=== PATIENT | male | born 1950 | race African-American/Black ===

== ENCOUNTER 2020-05-13 23:01 | Inpatient (IN) ==
[2020-05-14 00:28] LABS: Basophils % 0.5 % (0.0-0.8); Eosinophils % 0.7 % (0.00-10.9); Hematocrit 36.4 VOL% (42.0-52.0); Hemoglobin 12.4 GM/DL (14.0-18.0); Immature Granulocytes % 0.8 %; Immature Granulocytes Absolute 0.05 #; Lymphocytes # 1.5 10*3/uL (1.4-4.0); Lymphocytes % 24.9 % (21.2-54.2); Mean Corpuscular HGB Conc 34.1 GM/DL (32-36); Mean Corpuscular Volume 94.1 FL (87-102); Mean Platelet Volume 10.6 FL (9.6-12.0); Monocytes % 15.3 % (1.7-12.7); Neutrophils % 57.8 % (38.7-73.9); Red Blood Count 3.87 MC/CUMM (3.8-5.5); Red Cell Distribution Width 14.3 % (9.3-17.3); White Blood Count 6.2 T/CUMM (4-12)
[2020-05-14 00:29] LABS: Platelet Count 113 T/CUMM (130-400)
[2020-05-14 00:30] LABS: Total Cells Counted 0
[2020-05-14 00:46] LABS: Albumin 3.2 G/DL (3.4-5.0); Bilirubin,Total 1.3 MG/DL (0.2-1.0); Calcium 8.9 MG/DL (8.5-10.1); Osmolality,Calculated 260.9 MOS/KG (273-304); Potassium 4.5 MMOL/L (3.5-5.1); Total Protein 6.5 G/DL (6.4-8.3)
[2020-05-14] MEDS ORDERED: DEXTROSE 50% 25 GM/50 ML VIAL IV PRN (02:23)
[2020-05-14] MEDS ORDERED: GLUCAGON 1 MG VIAL IM PRN (02:23)
[2020-05-14] MEDS ORDERED: MAGNESIUM SULF RIDER 4 GM in PREMIX 1 EACH IV PRN (02:23)
[2020-05-14] MEDS ORDERED: ACETAMINOPHEN 325 MG TABLET PO PRN (02:23)
[2020-05-14] MEDS ORDERED: ONDANSETRON 4 MG/2 ML VIAL IV PRN (02:23)
[2020-05-14] MEDS ORDERED: ZALEPLON 5 MG CAPSULE PO PRN (02:23)
[2020-05-14] MEDS ORDERED: MAGNESIUM SULF RIDER 2 GM in PREMIX 1 EACH IV PRN (02:23)
[2020-05-14] MEDS ORDERED: LORazepam 1 MG TABLET PO PRN (02:47)
[2020-05-14] MEDS: ENOXAPARIN 40 MG/0.4 ML SYRINGE SUBCUT SCH (03:34)
[2020-05-14 06:27] LABS: Basophils % 0.7 % (0.0-0.8); Eosinophils # 0.1 10*3/uL (0.0-0.87); Eosinophils % 0.9 % (0.00-10.9); Hematocrit 34.7 VOL% (42.0-52.0); Hemoglobin 11.9 GM/DL (14.0-18.0); Immature Granulocytes % 0.6 %; Immature Granulocytes Absolute 0.03 #; Lymphocytes # 1.7 10*3/uL (1.4-4.0); Mean Corpuscular HGB Conc 34.3 GM/DL (32-36); Mean Platelet Volume 10.6 FL (9.6-12.0); Monocytes % 13.1 % (1.7-12.7); Neutrophils % 52.7 % (38.7-73.9); Platelet Count 104 T/CUMM (130-400); Red Blood Count 3.73 MC/CUMM (3.8-5.5); Red Cell Distribution Width 14.3 % (9.3-17.3); White Blood Count 5.4 T/CUMM (4-12)
[2020-05-14 06:49] LABS: Bilirubin,Total 1.7 MG/DL (0.2-1.0); Calcium 9.1 MG/DL (8.5-10.1); Osmolality,Calculated 259.1 MOS/KG (273-304); Potassium 4.2 MMOL/L (3.5-5.1); Total Protein 6.5 G/DL (6.4-8.3)
[2020-05-14] MEDS ORDERED: NITROGLYCERIN SL 0.4 MG TABLET SL PRN (07:28)
[2020-05-14 08:30] LABS: Band Neutrophils 1 % (0-10); Eosinophils 1 % (0-10); Lymphocytes 34 % (20-55); Segmented Neutrophils 55 % (50-85); Total Cells Counted 100
[2020-05-14 08:31] LABS: Anisocytosis 1+; Macrocytosis 1+; Platelet Estimate Normal
[2020-05-14] MEDS: MAGNESIUM OXIDE 400 MG TABLET PO SCH (09:38)
[2020-05-14] MEDS: CHOLECALCIFEROL 1,000 UNIT TABLET PO SCH (09:38)
[2020-05-14] MEDS: FUROSEMIDE 40 MG/4 ML VIAL IV SCH ×2 (09:38→16:32)
[2020-05-14] MEDS: CLOPIDOGREL 75 MG TABLET PO SCH (09:39)
[2020-05-14] MEDS: PANTOPRAZOLE 40 MG TABLET PO SCH (09:39)
[2020-05-14] MEDS: NICOTINE 21 MG/24 HR PATCH TRANSDERM SCH (09:39)
[2020-05-14] MEDS: POTASSIUM CHLORIDE 20 MEQ TABLET PO SCH ×2 (09:39→21:49)
[2020-05-14] MEDS: ASPIRIN EC 81 MG TABLET PO SCH (09:39)
[2020-05-14] MEDS: THIAMINE 100 MG TABLET PO SCH (09:39)
[2020-05-14] MEDS: FOLIC ACID 1 MG TABLET PO SCH (09:39)
[2020-05-14] MEDS: MULTIVITAMIN (CENTRUM) TABLET PO SCH (09:39)
[2020-05-14] MEDS: SIMVASTATIN 40 MG TABLET PO SCH (21:49)
[2020-05-15 03:15] LABS: Basophils % 0.8 % (0.0-0.8); Eosinophils % 0.8 % (0.00-10.9); Hematocrit 34.1 VOL% (42.0-52.0); Hemoglobin 11.4 GM/DL (14.0-18.0); Immature Granulocytes % 0.4 %; Immature Granulocytes Absolute 0.02 #; Lymphocytes # 1.4 10*3/uL (1.4-4.0); Lymphocytes % 28.6 % (21.2-54.2); Mean Corpuscular HGB Conc 33.4 GM/DL (32-36); Mean Corpuscular Volume 96.1 FL (87-102); Mean Platelet Volume 10.7 FL (9.6-12.0); Monocytes % 13.7 % (1.7-12.7); Neutrophils % 55.7 % (38.7-73.9); Platelet Count 110 T/CUMM (130-400); Red Blood Count 3.55 MC/CUMM (3.8-5.5); Red Cell Distribution Width 14.4 % (9.3-17.3); White Blood Count 4.8 T/CUMM (4-12)
[2020-05-15 03:45] LABS: Albumin 2.9 G/DL (3.4-5.0); Bilirubin,Total 1.3 MG/DL (0.2-1.0); Calcium 8.8 MG/DL (8.5-10.1); Osmolality,Calculated 260.1 MOS/KG (273-304); Potassium 3.8 MMOL/L (3.5-5.1); Total Protein 6.3 G/DL (6.4-8.3)
[2020-05-15 04:18] LABS: Hypochromasia 2+
[2020-05-15 04:19] LABS: Macrocytosis 1+; Platelet Estimate Decreased
[2020-05-15] MEDS: ENOXAPARIN 40 MG/0.4 ML SYRINGE SUBCUT SCH (04:32)
[2020-05-15] MEDS: PANTOPRAZOLE 40 MG TABLET PO SCH (09:37)
[2020-05-15] MEDS: CLOPIDOGREL 75 MG TABLET PO SCH (09:37)
[2020-05-15] MEDS: MULTIVITAMIN (CENTRUM) TABLET PO SCH (09:37)
[2020-05-15] MEDS: MAGNESIUM OXIDE 400 MG TABLET PO SCH (09:37)
[2020-05-15] MEDS: POTASSIUM CHLORIDE 20 MEQ TABLET PO SCH ×2 (09:37→21:24)
[2020-05-15] MEDS: THIAMINE 100 MG TABLET PO SCH (09:38)
[2020-05-15] MEDS: CHOLECALCIFEROL 1,000 UNIT TABLET PO SCH (09:38)
[2020-05-15] MEDS: FUROSEMIDE 40 MG/4 ML VIAL IV SCH ×2 (09:38→16:04)
[2020-05-15] MEDS: NICOTINE 21 MG/24 HR PATCH TRANSDERM SCH (09:38)
[2020-05-15] MEDS: FOLIC ACID 1 MG TABLET PO SCH (09:38)
[2020-05-15] MEDS: ASPIRIN EC 81 MG TABLET PO SCH (09:38)
[2020-05-15 14:50] LABS: Potassium 4.3 MMOL/L (3.5-5.1)
[2020-05-15] MEDS: SIMVASTATIN 40 MG TABLET PO SCH (21:24)
[2020-05-16] MEDS: ENOXAPARIN 40 MG/0.4 ML SYRINGE SUBCUT SCH (02:57)
[2020-05-16 06:59] LABS: Basophils % 0.4 % (0.0-0.8); Eosinophils % 0.8 % (0.00-10.9); Hematocrit 35.4 VOL% (42.0-52.0); Hemoglobin 12.1 GM/DL (14.0-18.0); Immature Granulocytes % 0.6 %; Immature Granulocytes Absolute 0.03 #; Lymphocytes # 1.7 10*3/uL (1.4-4.0); Lymphocytes % 31.5 % (21.2-54.2); Mean Corpuscular HGB Conc 34.2 GM/DL (32-36); Mean Corpuscular Volume 91.9 FL (87-102); Mean Platelet Volume 10.9 FL (9.6-12.0); Monocytes % 14.3 % (1.7-12.7); Neutrophils % 52.4 % (38.7-73.9); Platelet Count 96 T/CUMM (130-400); Red Blood Count 3.85 MC/CUMM (3.8-5.5); Red Cell Distribution Width 14.1 % (9.3-17.3); White Blood Count 5.2 T/CUMM (4-12)
[2020-05-16 07:21] LABS: Albumin 3.2 G/DL (3.4-5.0); Bilirubin,Total 1.7 MG/DL (0.2-1.0); Calcium 9.3 MG/DL (8.5-10.1); Osmolality,Calculated 256.4 MOS/KG (273-304); Potassium 4.1 MMOL/L (3.5-5.1); Total Protein 6.8 G/DL (6.4-8.3)
[2020-05-16 07:25] LABS: Hypochromasia 1+; Microcytosis 1+; Platelet Estimate Decreased
[2020-05-16] MEDS: FOLIC ACID 1 MG TABLET PO SCH (09:17)
[2020-05-16] MEDS: POTASSIUM CHLORIDE 20 MEQ TABLET PO SCH ×2 (09:17→20:51)
[2020-05-16] MEDS: CHOLECALCIFEROL 1,000 UNIT TABLET PO SCH (09:17)
[2020-05-16] MEDS: PANTOPRAZOLE 40 MG TABLET PO SCH (09:18)
[2020-05-16] MEDS: MAGNESIUM OXIDE 400 MG TABLET PO SCH (09:18)
[2020-05-16] MEDS: MULTIVITAMIN (CENTRUM) TABLET PO SCH (09:18)
[2020-05-16] MEDS: THIAMINE 100 MG TABLET PO SCH (09:18)
[2020-05-16] MEDS: NICOTINE 21 MG/24 HR PATCH TRANSDERM SCH (09:18)
[2020-05-16] MEDS: ASPIRIN EC 81 MG TABLET PO SCH (09:18)
[2020-05-16] MEDS: CLOPIDOGREL 75 MG TABLET PO SCH (09:18)
[2020-05-16] MEDS: FUROSEMIDE 40 MG/4 ML VIAL IV SCH ×2 (09:19→15:07)
[2020-05-16] MEDS: SIMVASTATIN 40 MG TABLET PO SCH (20:51)
[2020-05-17] MEDS: ENOXAPARIN 40 MG/0.4 ML SYRINGE SUBCUT SCH (03:13)
[2020-05-17 05:53] LABS: Basophils % 0.7 % (0.0-0.8); Eosinophils # 0.1 10*3/uL (0.0-0.87); Eosinophils % 0.9 % (0.00-10.9); Hemoglobin 12.2 GM/DL (14.0-18.0); Immature Granulocytes % 0.7 %; Immature Granulocytes Absolute 0.04 #; Lymphocytes # 1.6 10*3/uL (1.4-4.0); Lymphocytes % 30.4 % (21.2-54.2); Mean Corpuscular HGB Conc 33.9 GM/DL (32-36); Mean Corpuscular Volume 94.5 FL (87-102); Mean Platelet Volume 11.2 FL (9.6-12.0); Monocytes % 17.3 % (1.7-12.7); Platelet Count 122 T/CUMM (130-400); Red Blood Count 3.81 MC/CUMM (3.8-5.5); Red Cell Distribution Width 14.2 % (9.3-17.3); White Blood Count 5.4 T/CUMM (4-12)
[2020-05-17 06:24] LABS: Hypochromasia 1+; Lymphocytes 35 % (20-55); Microcytosis 1+; Segmented Neutrophils 56 % (50-85); Total Cells Counted 100
[2020-05-17 06:25] LABS: Platelet Estimate Adequate; Target Cells Slight
[2020-05-17 06:32] LABS: Calcium 9.4 MG/DL (8.5-10.1); Osmolality,Calculated 263.7 MOS/KG (273-304)
[2020-05-17] MEDS: FUROSEMIDE 40 MG/4 ML VIAL IV SCH ×2 (09:32→16:12)
[2020-05-17] MEDS ORDERED: DIAZEPAM 5 MG TABLET PO ONE (12:01)
[2020-05-17] MEDS ORDERED: diphenhydrAMINE CAP 50 MG CAPSULE PO ONE (12:01)
[2020-05-17] MEDS ORDERED: HEPARIN/NACL 0.9% 2 UNITS/ML 1,000 ML IV ONE (13:32)
[2020-05-17] MEDS ORDERED: LIDOCAINE 1%/EPI INJ 20 ML VIAL ONE (14:03)
[2020-05-17] MEDS ORDERED: MIDAZOLAM 2 MG/2 ML VIAL ONE (14:10)
[2020-05-17] MEDS ORDERED: fentaNYL 100 MCG/2 ML VIAL ONE (14:10)
[2020-05-17] MEDS: MAGNESIUM OXIDE 400 MG TABLET PO SCH (15:54)
[2020-05-17] MEDS: POTASSIUM CHLORIDE 20 MEQ TABLET PO SCH ×2 (15:54→22:41)
[2020-05-17] MEDS: FOLIC ACID 1 MG TABLET PO SCH (15:55)
[2020-05-17] MEDS: CHOLECALCIFEROL 1,000 UNIT TABLET PO SCH (15:55)
[2020-05-17] MEDS: MULTIVITAMIN (CENTRUM) TABLET PO SCH (15:55)
[2020-05-17] MEDS: PANTOPRAZOLE 40 MG TABLET PO SCH (15:55)
[2020-05-17] MEDS: THIAMINE 100 MG TABLET PO SCH (15:55)
[2020-05-17] MEDS: ASPIRIN EC 81 MG TABLET PO SCH (15:55)
[2020-05-17] MEDS: CLOPIDOGREL 75 MG TABLET PO SCH (15:55)
[2020-05-17] MEDS: NICOTINE 21 MG/24 HR PATCH TRANSDERM SCH (16:12)
[2020-05-17] MEDS: SIMVASTATIN 40 MG TABLET PO SCH (22:41)
[2020-05-18] MEDS ORDERED: SODIUM CHLORIDE 0.9% 500 ML IV ONE ×2 (01:25→08:22)
[2020-05-18 01:52] LABS: Basophils # 0.1 10*3/uL (0.0-0.2); Eosinophils # 0.1 10*3/uL (0.0-0.87); Hemoglobin 11.8 GM/DL (14.0-18.0); Immature Granulocytes % 0.6 %; Immature Granulocytes Absolute 0.03 #; Lymphocytes # 1.6 10*3/uL (1.4-4.0); Lymphocytes % 30.8 % (21.2-54.2); Mean Corpuscular HGB Conc 33.7 GM/DL (32-36); Mean Corpuscular Volume 94.3 FL (87-102); Mean Platelet Volume 10.3 FL (9.6-12.0); Neutrophils % 50.6 % (38.7-73.9); Platelet Count 123 T/CUMM (130-400); Red Blood Count 3.71 MC/CUMM (3.8-5.5); Red Cell Distribution Width 14.3 % (9.3-17.3); White Blood Count 5.1 T/CUMM (4-12)
[2020-05-18 02:18] LABS: Calcium 9.2 MG/DL (8.5-10.1); Osmolality,Calculated 259.9 MOS/KG (273-304); Potassium 3.9 MMOL/L (3.5-5.1)
[2020-05-18 03:02] LABS: Anisocytosis 1+; Band Neutrophils 3 % (0-10); Eosinophils 1 % (0-10); Lymphocytes 25 % (20-55); Macrocytosis 1+; Platelet Estimate Decreased; Segmented Neutrophils 51 % (50-85); Total Cells Counted 100
[2020-05-18 06:48] LABS: Basophils % 0.4 % (0.0-0.8); Eosinophils % 0.7 % (0.00-10.9); Hematocrit 34.8 VOL% (42.0-52.0); Hemoglobin 11.9 GM/DL (14.0-18.0); Immature Granulocytes % 0.4 %; Immature Granulocytes Absolute 0.02 #; Lymphocytes # 1.3 10*3/uL (1.4-4.0); Lymphocytes % 29.3 % (21.2-54.2); Mean Corpuscular HGB Conc 34.2 GM/DL (32-36); Mean Corpuscular Volume 94.8 FL (87-102); Mean Platelet Volume 10.9 FL (9.6-12.0); Monocytes % 14.9 % (1.7-12.7); Neutrophils % 54.3 % (38.7-73.9); Platelet Count 105 T/CUMM (130-400); Red Blood Count 3.67 MC/CUMM (3.8-5.5); Red Cell Distribution Width 14.2 % (9.3-17.3); White Blood Count 4.5 T/CUMM (4-12)
[2020-05-18 07:28] LABS: Platelet Estimate Adequate
[2020-05-18 07:29] LABS: Anisocytosis 1+; Macrocytosis 1+
[2020-05-18] MEDS: FOLIC ACID 1 MG TABLET PO SCH (08:49)
[2020-05-18] MEDS: MAGNESIUM OXIDE 400 MG TABLET PO SCH (08:49)
[2020-05-18] MEDS: CHOLECALCIFEROL 1,000 UNIT TABLET PO SCH (08:49)
[2020-05-18] MEDS: ENOXAPARIN 40 MG/0.4 ML SYRINGE SUBCUT SCH (08:49)
[2020-05-18] MEDS: POTASSIUM CHLORIDE 20 MEQ TABLET PO SCH (08:49)
[2020-05-18] MEDS: CLOPIDOGREL 75 MG TABLET PO SCH (08:49)
[2020-05-18] MEDS: THIAMINE 100 MG TABLET PO SCH (08:49)
[2020-05-18] MEDS: ASPIRIN EC 81 MG TABLET PO SCH (08:49)
[2020-05-18] MEDS: PANTOPRAZOLE 40 MG TABLET PO SCH (08:49)
[2020-05-18] MEDS: MULTIVITAMIN (CENTRUM) TABLET PO SCH (08:49)
[2020-05-18] MEDS ORDERED: FUROSEMIDE 80 MG TABLET PO SCH (09:00)
[2020-05-18] MEDS: NICOTINE 21 MG/24 HR PATCH TRANSDERM SCH (09:09)
[2020-05-18 12:33] VITALS: BP 106/67
== END 2020-05-18 12:28 | disposition home or self-care (01) | DRG 287 ==
LOC: N.ED 23:01 → N.EDINP 05-14 02:23 → SUATTDRO 05-14 02:23 → N.EDINP 05-14 04:12 → N.TELEN 05-14 05:03
PROVIDERS: ADMIT Internal Medicine; ATTEND Emergency Medicine
PROC: CLCCHCL (ICD-10-PCS; 2020-05-17 12:45)

== ENCOUNTER 2020-06-12 20:05 | Inpatient (IN) ==
[2020-06-12 23:36] LABS: Basophils % 0.3 % (0.0-0.8); Eosinophils % 0.5 % (0.00-10.9); Hematocrit 40.8 VOL% (42.0-52.0); Hemoglobin 13.7 GM/DL (14.0-18.0); Immature Granulocytes % 0.8 %; Immature Granulocytes Absolute 0.05 #; Lymphocytes # 1.1 10*3/uL (1.4-4.0); Lymphocytes % 17.6 % (21.2-54.2); Mean Corpuscular HGB Conc 33.6 GM/DL (32-36); Mean Corpuscular Volume 94.2 FL (87-102); Mean Platelet Volume 10.5 FL (9.6-12.0); Monocytes % 16.5 % (1.7-12.7); Neutrophils % 64.3 % (38.7-73.9); Platelet Count 116 T/CUMM (130-400); Red Blood Count 4.33 MC/CUMM (3.8-5.5); Red Cell Distribution Width 15.4 % (9.3-17.3); White Blood Count 6.4 T/CUMM (4-12)
[2020-06-12] MEDS ORDERED: FUROSEMIDE 40 MG/4 ML VIAL IV STA (23:47)
[2020-06-12] MEDS ORDERED: PANTOPRAZOLE 40 MG VIAL IV STA (23:47)
[2020-06-12] MEDS ORDERED: ONDANSETRON 4 MG/2 ML VIAL IV STA (23:47)
[2020-06-12 23:58] LABS: Albumin 3.7 G/DL (3.4-5.0); Bilirubin,Total 2.9 MG/DL (0.2-1.0); Calcium 9.5 MG/DL (8.5-10.1); Osmolality,Calculated 262.8 MOS/KG (273-304); Potassium 4.5 MMOL/L (3.5-5.1); Total Protein 6.9 G/DL (6.4-8.2)
[2020-06-13 00:03] LABS: Troponin I 0.073 NG/ML (0.00-0.045)
[2020-06-13 00:19] LABS: INR 1.4; PT Patient Result 14.7 SECS (9.8-11.9)
[2020-06-13] MEDS ORDERED: FUROSEMIDE 20 MG/2 ML VIAL IV STA (01:05)
[2020-06-13] MEDS ORDERED: NICOTINE 21 MG/24 HR PATCH TRANSDERM PRN (04:02)
[2020-06-13] MEDS ORDERED: GLUCAGON 1 MG VIAL IM PRN (04:02)
[2020-06-13] MEDS ORDERED: ONDANSETRON 4 MG/2 ML VIAL IV PRN (04:02)
[2020-06-13] MEDS ORDERED: ACETAMINOPHEN 325 MG TABLET PO PRN (04:02)
[2020-06-13] MEDS ORDERED: DEXTROSE 50% 25 GM/50 ML VIAL IV PRN (04:02)
[2020-06-13] MEDS ORDERED: LORazepam 1 MG TABLET PO PRN (04:56)
[2020-06-13 07:00] LABS: Bilirubin,Urine Negative (Negative); Blood, Urine Negative (Negative); Glucose,Urine (UA) Negative (Negative); Hyaline Casts,Urine 23 /LPF (0-3); Ketones,Urine Negative (Negative); Mucus,Urine Occasional /LPF (Occasional); Nitrite,Urine Negative (Negative); Protein,Urine Negative; RBC,Urine 1 /HPF (0-4); Squamous Epithelial Cell,Urine Occasional /HPF (0-10); Urine Appearance CLEAR (Clear); Urine Color Yellow (Yellow); Urine Specific Gravity 1.006 (1.001-1.035); Urine Urobilinogen < 2.0 EU/DL (0.2-1.0)
[2020-06-13] MEDS: POTASSIUM CHLORIDE 20 MEQ TABLET PO SCH ×2 (08:48→20:54)
[2020-06-13] MEDS: ASPIRIN EC 81 MG TABLET PO SCH (08:48)
[2020-06-13] MEDS: MAGNESIUM OXIDE 400 MG TABLET PO SCH (08:48)
[2020-06-13] MEDS: FOLIC ACID 1 MG TABLET PO SCH (08:48)
[2020-06-13] MEDS: PANTOPRAZOLE 40 MG TABLET PO SCH (08:48)
[2020-06-13] MEDS: CHOLECALCIFEROL 1,000 UNIT TABLET PO SCH ×2 (08:48→20:54)
[2020-06-13] MEDS: FUROSEMIDE 40 MG/4 ML VIAL IV SCH ×2 (08:49→15:45)
[2020-06-13] MEDS: ENOXAPARIN 40 MG/0.4 ML SYRINGE SUBCUT SCH (08:50)
[2020-06-13] MEDS: THIAMINE 100 MG TABLET PO SCH (08:57)
[2020-06-13] MEDS ORDERED: NITROGLYCERIN SL 0.4 MG TABLET SL PRN (11:11)
[2020-06-13] MEDS: CLOPIDOGREL 75 MG TABLET PO SCH (12:02)
[2020-06-13 13:07] LABS: Calcium 9.3 MG/DL (8.5-10.1); Osmolality,Calculated 256.4 MOS/KG (273-304); Potassium 4.1 MMOL/L (3.5-5.1)
[2020-06-13] MEDS ORDERED: INFLUENZA VIRUS VACCINE 0.5 ML SYRINGE IM ONE (17:27)
[2020-06-13] MEDS: traZODone 50 MG TABLET PO SCH (20:54)
[2020-06-13] MEDS: SIMVASTATIN 40 MG TABLET PO SCH (20:55)
[2020-06-14 04:22] LABS: Basophils % 0.6 % (0.0-0.8); Eosinophils # 0.1 10*3/uL (0.0-0.87); Eosinophils % 1.1 % (0.00-10.9); Hematocrit 35.8 VOL% (42.0-52.0); Hemoglobin 12.3 GM/DL (14.0-18.0); Immature Granulocytes % 0.6 %; Immature Granulocytes Absolute 0.03 #; Lymphocytes % 21.5 % (21.2-54.2); Mean Corpuscular HGB Conc 34.4 GM/DL (32-36); Mean Corpuscular Volume 92.3 FL (87-102); Monocytes % 13.4 % (1.7-12.7); Neutrophils % 62.8 % (38.7-73.9); Platelet Count 94 T/CUMM (130-400); Red Blood Count 3.88 MC/CUMM (3.8-5.5); Red Cell Distribution Width 15.9 % (9.3-17.3); White Blood Count 4.7 T/CUMM (4-12)
[2020-06-14 04:41] LABS: Albumin 3.1 G/DL (3.4-5.0); Bilirubin,Total 3.7 MG/DL (0.2-1.0); Calcium 8.9 MG/DL (8.5-10.1); Osmolality,Calculated 263.8 MOS/KG (273-304); Potassium 4.3 MMOL/L (3.5-5.1); Total Protein 6.2 G/DL (6.4-8.2)
[2020-06-14 04:42] LABS: Hypochromasia 1+
[2020-06-14 04:43] LABS: Microcytosis 1+; Ovalocytes Slight
[2020-06-14 04:44] LABS: Platelet Estimate Decreased
[2020-06-14] MEDS: FOLIC ACID 1 MG TABLET PO SCH (09:04)
[2020-06-14] MEDS: ASPIRIN EC 81 MG TABLET PO SCH (09:04)
[2020-06-14] MEDS: MULTIVITAMIN (BEROCCA) TABLET PO SCH (09:04)
[2020-06-14] MEDS: PANTOPRAZOLE 40 MG TABLET PO SCH (09:04)
[2020-06-14] MEDS: CLOPIDOGREL 75 MG TABLET PO SCH (09:04)
[2020-06-14] MEDS: CHOLECALCIFEROL 1,000 UNIT TABLET PO SCH ×2 (09:04→20:51)
[2020-06-14] MEDS: POTASSIUM CHLORIDE 20 MEQ TABLET PO SCH ×2 (09:04→20:51)
[2020-06-14] MEDS: MAGNESIUM OXIDE 400 MG TABLET PO SCH (09:04)
[2020-06-14] MEDS: THIAMINE 100 MG TABLET PO SCH (09:04)
[2020-06-14] MEDS: FUROSEMIDE 40 MG/4 ML VIAL IV SCH ×2 (09:05→15:27)
[2020-06-14] MEDS: ENOXAPARIN 40 MG/0.4 ML SYRINGE SUBCUT SCH (09:05)
[2020-06-14] MEDS: SIMVASTATIN 40 MG TABLET PO SCH (20:52)
[2020-06-14] MEDS: traZODone 50 MG TABLET PO SCH (20:52)
[2020-06-15 06:36] LABS: Calcium 9.4 MG/DL (8.5-10.1); Osmolality,Calculated 259.2 MOS/KG (273-304)
[2020-06-15 06:38] LABS: Albumin 3.2 G/DL (3.4-5.0); Bilirubin,Direct 1.41 MG/DL (0.0-0.20); Bilirubin,Indirect 1.5 MG/DL (0.0-1.0); Bilirubin,Total 2.9 MG/DL (0.2-1.0); Total Protein 6.6 G/DL (6.4-8.2)
[2020-06-15] MEDS: FUROSEMIDE 40 MG/4 ML VIAL IV SCH (09:31)
[2020-06-15] MEDS: FOLIC ACID 1 MG TABLET PO SCH (09:31)
[2020-06-15] MEDS: THIAMINE 100 MG TABLET PO SCH (09:31)
[2020-06-15] MEDS: MULTIVITAMIN (BEROCCA) TABLET PO SCH (09:31)
[2020-06-15] MEDS: POTASSIUM CHLORIDE 20 MEQ TABLET PO SCH (09:31)
[2020-06-15] MEDS: CHOLECALCIFEROL 1,000 UNIT TABLET PO SCH (09:31)
[2020-06-15] MEDS: ENOXAPARIN 40 MG/0.4 ML SYRINGE SUBCUT SCH (09:31)
[2020-06-15] MEDS: ASPIRIN EC 81 MG TABLET PO SCH (09:31)
[2020-06-15] MEDS: CLOPIDOGREL 75 MG TABLET PO SCH (09:31)
[2020-06-15] MEDS: MAGNESIUM OXIDE 400 MG TABLET PO SCH (09:31)
[2020-06-15] MEDS: PANTOPRAZOLE 40 MG TABLET PO SCH (09:31)
[2020-06-15 11:36] VITALS: BP 99/64
== END 2020-06-15 15:04 | disposition home or self-care (01) | DRG 292 ==
LOC: N.EDINP 20:05 → N.ED 20:05 → N.2E 06-13 16:48
PROVIDERS: ADMIT Internal Medicine; ATTEND Internal Medicine

== ENCOUNTER 2020-06-21 11:06 | Inpatient (IN) ==
[2020-06-21] MEDS ORDERED: FUROSEMIDE 100 MG/10 ML VIAL IV STA (11:35)
[2020-06-21 12:15] LABS: Basophils % 0.4 % (0.0-0.8); Eosinophils % 0.4 % (0.00-10.9); Hematocrit 37.6 VOL% (42.0-52.0); Hemoglobin 12.9 GM/DL (14.0-18.0); Immature Granulocytes % 0.6 %; Immature Granulocytes Absolute 0.03 #; Lymphocytes # 0.7 10*3/uL (1.4-4.0); Lymphocytes % 14.4 % (21.2-54.2); Mean Corpuscular HGB Conc 34.3 GM/DL (32-36); Mean Corpuscular Volume 92.2 FL (87-102); Monocytes % 15.2 % (1.7-12.7); Platelet Count 137 T/CUMM (130-400); Red Blood Count 4.08 MC/CUMM (3.8-5.5); Red Cell Distribution Width 15.8 % (9.3-17.3)
[2020-06-21 12:33] LABS: Albumin 3.3 G/DL (3.4-5.0); Calcium 9.3 MG/DL (8.5-10.1); Osmolality,Calculated 255.2 MOS/KG (273-304); Potassium 4.4 MMOL/L (3.5-5.1); Total Protein 6.6 G/DL (6.4-8.2)
[2020-06-21 12:37] LABS: Anisocytosis 1+; Platelet Estimate Adequate
[2020-06-21 12:38] LABS: Macrocytosis 1+; Poikilocytosis Slight
[2020-06-21] MEDS ORDERED: ZALEPLON 5 MG CAPSULE PO PRN (13:24)
[2020-06-21] MEDS ORDERED: guaiFENesin/DM ER 600-30 MG TABLET PO PRN (13:24)
[2020-06-21] MEDS ORDERED: ONDANSETRON 4 MG/2 ML VIAL IV PRN (13:24)
[2020-06-21] MEDS ORDERED: POTASSIUM CHLORIDE 20 MEQ TABLET PO PRN (13:24)
[2020-06-21] MEDS ORDERED: diphenhydrAMINE CAP 25 MG CAPSULE PO PRN (13:24)
[2020-06-21] MEDS ORDERED: MAGNESIUM SULF RIDER 2 GM in PREMIX 1 EACH IV PRN (13:24)
[2020-06-21] MEDS ORDERED: MAGNESIUM SULF RIDER 4 GM in PREMIX 1 EACH IV PRN (13:24)
[2020-06-21] MEDS ORDERED: ACETAMINOPHEN 325 MG TABLET PO PRN (13:24)
[2020-06-21] MEDS ORDERED: hydrALAZINE 20 MG/1 ML VIAL IV PRN (13:24)
[2020-06-21 13:47] LABS: Troponin I 0.087 NG/ML (0.00-0.045)
[2020-06-21] MEDS ORDERED: NITROGLYCERIN SL 0.4 MG TABLET SL PRN (14:19)
[2020-06-21] MEDS: ENOXAPARIN 40 MG/0.4 ML SYRINGE SUBCUT SCH (15:17)
[2020-06-21] MEDS: FUROSEMIDE 40 MG/4 ML VIAL IV SCH (16:04)
[2020-06-21] MEDS: traZODone 50 MG TABLET PO SCH (20:20)
[2020-06-21] MEDS: POTASSIUM CHLORIDE 20 MEQ TABLET PO SCH (20:20)
[2020-06-21] MEDS: CHOLECALCIFEROL 1,000 UNIT TABLET PO SCH (20:20)
[2020-06-22 05:20] LABS: Basophils % 0.9 % (0.0-0.8); Eosinophils # 0.1 10*3/uL (0.0-0.87); Eosinophils % 1.1 % (0.00-10.9); Hematocrit 36.6 VOL% (42.0-52.0); Hemoglobin 12.3 GM/DL (14.0-18.0); Immature Granulocytes % 0.9 %; Immature Granulocytes Absolute 0.04 #; Lymphocytes # 1.1 10*3/uL (1.4-4.0); Lymphocytes % 24.4 % (21.2-54.2); Mean Corpuscular HGB Conc 33.6 GM/DL (32-36); Mean Corpuscular Volume 94.3 FL (87-102); Mean Platelet Volume 10.2 FL (9.6-12.0); Monocytes % 14.9 % (1.7-12.7); Neutrophils % 57.8 % (38.7-73.9); Platelet Count 134 T/CUMM (130-400); Red Blood Count 3.88 MC/CUMM (3.8-5.5); Red Cell Distribution Width 16.1 % (9.3-17.3); White Blood Count 4.4 T/CUMM (4-12)
[2020-06-22 05:35] LABS: Calcium 9.3 MG/DL (8.5-10.1); Osmolality,Calculated 260.1 MOS/KG (273-304); Potassium 4.3 MMOL/L (3.5-5.1)
[2020-06-22 05:49] LABS: Eosinophils 1 % (0-10); Lymphocytes 29 % (20-55); Platelet Estimate Normal; Polychromasia Slight; Segmented Neutrophils 61 % (50-85); Total Cells Counted 100
[2020-06-22] MEDS: FUROSEMIDE 40 MG/4 ML VIAL IV SCH ×2 (08:45→16:41)
[2020-06-22] MEDS: POTASSIUM CHLORIDE 20 MEQ TABLET PO SCH ×2 (08:46→20:31)
[2020-06-22] MEDS: CLOPIDOGREL 75 MG TABLET PO SCH (08:46)
[2020-06-22] MEDS: ASPIRIN EC 81 MG TABLET PO SCH (08:46)
[2020-06-22] MEDS: MAGNESIUM OXIDE 400 MG TABLET PO SCH (08:46)
[2020-06-22] MEDS: MULTIVITAMIN (BEROCCA) TABLET PO SCH (08:47)
[2020-06-22] MEDS: PANTOPRAZOLE 40 MG TABLET PO SCH (08:47)
[2020-06-22] MEDS: SPIRONOLACTONE 25 MG TABLET PO SCH (08:47)
[2020-06-22] MEDS: CHOLECALCIFEROL 1,000 UNIT TABLET PO SCH ×2 (08:47→20:31)
[2020-06-22] MEDS: SIMVASTATIN 40 MG TABLET PO SCH (08:48)
[2020-06-22] MEDS: FOLIC ACID 1 MG TABLET PO SCH (08:48)
[2020-06-22] MEDS: ENOXAPARIN 40 MG/0.4 ML SYRINGE SUBCUT SCH (13:23)
[2020-06-22] MEDS ORDERED: diphenhydrAMINE CAP 25 MG CAPSULE PO ONE (13:26)
[2020-06-22] MEDS ORDERED: DIAZEPAM 5 MG TABLET PO ONE (13:26)
[2020-06-22] MEDS: traZODone 50 MG TABLET PO SCH (20:31)
[2020-06-23 04:45] LABS: Basophils % 0.7 % (0.0-0.8); Eosinophils # 0.1 10*3/uL (0.0-0.87); Eosinophils % 1.8 % (0.00-10.9); Hematocrit 38.1 VOL% (42.0-52.0); Hemoglobin 12.6 GM/DL (14.0-18.0); Immature Granulocytes % 0.8 %; Immature Granulocytes Absolute 0.05 #; Lymphocytes # 1.3 10*3/uL (1.4-4.0); Lymphocytes % 21.7 % (21.2-54.2); Mean Corpuscular HGB Conc 33.1 GM/DL (32-36); Mean Corpuscular Volume 94.8 FL (87-102); Mean Platelet Volume 10.4 FL (9.6-12.0); Platelet Count 134 T/CUMM (130-400); Red Blood Count 4.02 MC/CUMM (3.8-5.5); Red Cell Distribution Width 16.2 % (9.3-17.3); White Blood Count 6.1 T/CUMM (4-12)
[2020-06-23 05:11] LABS: Calcium 9.5 MG/DL (8.5-10.1); Osmolality,Calculated 259.4 MOS/KG (273-304); Potassium 4.8 MMOL/L (3.5-5.1)
[2020-06-23 05:23] LABS: Eosinophils 3 % (0-10); Lymphocytes 23 % (20-55); Segmented Neutrophils 65 % (50-85); Total Cells Counted 100
[2020-06-23 05:24] LABS: Hypochromasia 1+; Microcytosis 1+; Ovalocytes Slight
[2020-06-23] MEDS: FUROSEMIDE 40 MG/4 ML VIAL IV SCH (09:05)
[2020-06-23] MEDS: MAGNESIUM OXIDE 400 MG TABLET PO SCH (09:31)
[2020-06-23] MEDS: SIMVASTATIN 40 MG TABLET PO SCH (09:31)
[2020-06-23] MEDS: CLOPIDOGREL 75 MG TABLET PO SCH (09:31)
[2020-06-23] MEDS: ASPIRIN EC 81 MG TABLET PO SCH (09:31)
[2020-06-23] MEDS: POTASSIUM CHLORIDE 20 MEQ TABLET PO SCH ×2 (09:32→20:51)
[2020-06-23] MEDS: MULTIVITAMIN (BEROCCA) TABLET PO SCH (09:32)
[2020-06-23] MEDS: PANTOPRAZOLE 40 MG TABLET PO SCH (09:32)
[2020-06-23] MEDS: SPIRONOLACTONE 25 MG TABLET PO SCH (09:32)
[2020-06-23] MEDS: FOLIC ACID 1 MG TABLET PO SCH (09:33)
[2020-06-23] MEDS: CHOLECALCIFEROL 1,000 UNIT TABLET PO SCH ×2 (09:33→20:51)
[2020-06-23] MEDS ORDERED: SODIUM CHLORIDE 0.9% 500 ML IV SCH ×2 (11:25→12:00)
[2020-06-23] MEDS ORDERED: HEPARIN/NACL 0.9% 2 UNITS/ML 1,000 ML IV ONE (11:29)
[2020-06-23] MEDS ORDERED: LIDOCAINE 1%/EPI INJ 20 ML VIAL ONE ×2 (11:29→12:32)
[2020-06-23] MEDS ORDERED: DIAZEPAM 5 MG TABLET ONE (11:36)
[2020-06-23] MEDS ORDERED: MIDAZOLAM 2 MG/2 ML VIAL ONE (12:32)
[2020-06-23] MEDS ORDERED: fentaNYL 100 MCG/2 ML VIAL ONE (12:32)
[2020-06-23] MEDS ORDERED: ENOXAPARIN 60 MG/0.6 ML SYRINGE ONE (12:52)
[2020-06-23] MEDS ORDERED: TIROFIBAN 5,000 MCG/100 ML PREMIX IV ONE (13:00)
[2020-06-23] MEDS ORDERED: CLOPIDOGREL 300 MG TABLET ONE (13:13)
[2020-06-23] MEDS: traZODone 50 MG TABLET PO SCH (20:51)
[2020-06-24 06:42] LABS: Basophils % 0.7 % (0.0-0.8); Eosinophils # 0.1 10*3/uL (0.0-0.87); Eosinophils % 1.4 % (0.00-10.9); Hematocrit 37.2 VOL% (42.0-52.0); Hemoglobin 12.7 GM/DL (14.0-18.0); Immature Granulocytes % 0.7 %; Immature Granulocytes Absolute 0.04 #; Lymphocytes # 1.1 10*3/uL (1.4-4.0); Lymphocytes % 19.5 % (21.2-54.2); Mean Corpuscular HGB Conc 34.1 GM/DL (32-36); Mean Corpuscular Volume 93.7 FL (87-102); Mean Platelet Volume 10.2 FL (9.6-12.0); Monocytes % 11.1 % (1.7-12.7); Neutrophils % 66.6 % (38.7-73.9); Platelet Count 135 T/CUMM (130-400); Red Blood Count 3.97 MC/CUMM (3.8-5.5); Red Cell Distribution Width 16.3 % (9.3-17.3); White Blood Count 5.8 T/CUMM (4-12)
[2020-06-24 06:55] LABS: Calcium 9.6 MG/DL (8.5-10.1); Osmolality,Calculated 260.2 MOS/KG (273-304); Potassium 5.3 MMOL/L (3.5-5.1)
[2020-06-24 08:07] LABS: Anisocytosis 1+; Macrocytosis 1+; Platelet Estimate Adequate
[2020-06-24 08:08] LABS: Poikilocytosis Slight
[2020-06-24] MEDS: SIMVASTATIN 40 MG TABLET PO SCH (09:10)
[2020-06-24] MEDS: CHOLECALCIFEROL 1,000 UNIT TABLET PO SCH (09:10)
[2020-06-24] MEDS: ASPIRIN EC 81 MG TABLET PO SCH (09:10)
[2020-06-24] MEDS: CLOPIDOGREL 75 MG TABLET PO SCH (09:10)
[2020-06-24] MEDS: MULTIVITAMIN (BEROCCA) TABLET PO SCH (09:10)
[2020-06-24] MEDS: FOLIC ACID 1 MG TABLET PO SCH (09:10)
[2020-06-24] MEDS: MAGNESIUM OXIDE 400 MG TABLET PO SCH (09:10)
[2020-06-24] MEDS: PANTOPRAZOLE 40 MG TABLET PO SCH (09:11)
[2020-06-24] MEDS ORDERED: FUROSEMIDE 80 MG TABLET PO ONE (11:00)
[2020-06-24 16:23] VITALS: BP 103/71
[2020-06-25] MEDS ORDERED: FUROSEMIDE 80 MG TABLET PO SCH (09:00)
== END 2020-06-24 16:30 | disposition home health service (06) | DRG 248 ==
LOC: N.EDINP 11:06 → N.ED 11:06 → N.TELEN 14:41
PROVIDERS: ADMIT Internal Medicine Interventional Cardiology; ATTEND Internal Medicine Interventional Cardiology

== ENCOUNTER 2020-08-02 10:41 | Inpatient (IN) ==
[2020-08-02] MEDS ORDERED: SODIUM CHLORIDE 0.9% 1,000 ML IV STA ×2 (11:06→12:47)
[2020-08-02 12:02] LABS: Albumin 3.1 G/DL (3.4-5.0); Bilirubin,Total 3.8 MG/DL (0.2-1.0); Calcium 10.1 MG/DL (8.5-10.1); Osmolality,Calculated 267.4 MOS/KG (273-304); Potassium 4.4 MMOL/L (3.5-5.1); Total Protein 6.7 G/DL (6.4-8.2)
[2020-08-02 12:20] LABS: Basophils % 0.2 % (0.0-0.8); Eosinophils # 0.1 10*3/uL (0.0-0.87); Eosinophils % 1.3 % (0.00-10.9); Hematocrit 42.5 VOL% (42.0-52.0); Hemoglobin 13.9 GM/DL (14.0-18.0); Immature Granulocytes % 0.4 %; Immature Granulocytes Absolute 0.02 #; Lymphocytes # 0.9 10*3/uL (1.4-4.0); Lymphocytes % 19.4 % (21.2-54.2); Mean Corpuscular HGB Conc 32.7 GM/DL (32-36); Mean Corpuscular Volume 96.2 FL (87-102); Mean Platelet Volume 11.2 FL (9.6-12.0); Monocytes % 12.4 % (1.7-12.7); Neutrophils % 66.3 % (38.7-73.9); Platelet Count 100 T/CUMM (130-400); Red Blood Count 4.42 MC/CUMM (3.8-5.5); Red Cell Distribution Width 19.5 % (9.3-17.3); White Blood Count 4.5 T/CUMM (4-12)
[2020-08-02 13:28] LABS: Bilirubin,Urine Negative (Negative); Blood, Urine Negative (Negative); Glucose,Urine (UA) Negative (Negative); Hyaline Casts,Urine 58 /LPF (0-3); Ketones,Urine Negative (Negative); Mucus,Urine Occasional /LPF (Occasional); Nitrite,Urine Negative (Negative); Protein,Urine Negative; RBC,Urine 2 /HPF (0-4); Squamous Epithelial Cell,Urine Occasional /HPF (0-10); Urine Appearance Slightly Hazy (Clear); Urine Color Amber (Yellow); Urine Specific Gravity 1.011 (1.001-1.035)
[2020-08-02] MEDS ORDERED: DEXTROSE 50% 25 GM/50 ML VIAL IV PRN (14:31)
[2020-08-02] MEDS ORDERED: GLUCAGON 1 MG VIAL IM PRN (14:31)
[2020-08-02] MEDS ORDERED: chlordiazePOXIDE 10 MG CAPSULE PO PRN (15:42)
[2020-08-02] MEDS ORDERED: LORazepam 2 MG/1 ML VIAL IV PRN (15:42)
[2020-08-02 16:47] LABS: Barbiturates Screen,Urine Negative (Negative); Benzodiazepines Screen,Urine Negative (Negative); Cannabinoid Screen,Urine Negative (Negative); Opiate Screen,Urine Negative (Negative); Phencyclidine Screen,Urine Negative (Negative)
[2020-08-02] MEDS ORDERED: THIAMINE INJ 100 MG, FOLIC ACID INJ 1 MG, MAGNESIUM SULF INJ 2 GM, MULTIVITAMIN INJ 10 ... IV SCH (17:00)
[2020-08-02] MEDS: ENOXAPARIN 40 MG/0.4 ML SYRINGE SUBCUT SCH (17:29)
[2020-08-02] MEDS: CHOLECALCIFEROL 1,000 UNIT TABLET PO SCH (21:27)
[2020-08-02] MEDS: traZODone 50 MG TABLET PO SCH (21:27)
[2020-08-03 05:22] LABS: Basophils % 0.4 % (0.0-0.8); Eosinophils # 0.1 10*3/uL (0.0-0.87); Eosinophils % 2.1 % (0.00-10.9); Hematocrit 42.2 VOL% (42.0-52.0); Hemoglobin 14.4 GM/DL (14.0-18.0); Immature Granulocytes % 0.4 %; Immature Granulocytes Absolute 0.02 #; Lymphocytes % 20.8 % (21.2-54.2); Mean Corpuscular HGB Conc 34.1 GM/DL (32-36); Mean Corpuscular Volume 93.6 FL (87-102); Mean Platelet Volume 11.5 FL (9.6-12.0); Monocytes % 11.8 % (1.7-12.7); Neutrophils % 64.5 % (38.7-73.9); Platelet Count 85 T/CUMM (130-400); Red Blood Count 4.51 MC/CUMM (3.8-5.5); Red Cell Distribution Width 19.4 % (9.3-17.3); White Blood Count 4.7 T/CUMM (4-12)
[2020-08-03 05:40] LABS: Bilirubin,Total 2.9 MG/DL (0.2-1.0); Calcium 9.2 MG/DL (8.5-10.1); Osmolality,Calculated 266.7 MOS/KG (273-304); Potassium 4.1 MMOL/L (3.5-5.1)
[2020-08-03 05:42] LABS: Platelet Estimate Decreased
[2020-08-03 05:46] LABS: Risk Ratio 2.85; Thyroid Stimulating Hormone 2.57 uIU/ml (0.358-3.74); VLDL CHOLESTEROL 17.4 MG/DL
[2020-08-03] MEDS ORDERED: FUROSEMIDE 40 MG/4 ML VIAL IV SCH (06:00)
[2020-08-03] MEDS ORDERED: SIMVASTATIN 40 MG TABLET PO SCH (09:00)
[2020-08-03] MEDS ORDERED: FOLIC ACID 1 MG TABLET PO SCH (09:00)
[2020-08-03] MEDS ORDERED: THIAMINE 100 MG TABLET PO SCH (09:00)
[2020-08-03] MEDS: ASPIRIN EC 81 MG TABLET PO SCH (09:25)
[2020-08-03] MEDS: CLOPIDOGREL 75 MG TABLET PO SCH (09:25)
[2020-08-03] MEDS: MAGNESIUM OXIDE 400 MG TABLET PO SCH (09:25)
[2020-08-03] MEDS: PANTOPRAZOLE 40 MG TABLET PO SCH (09:25)
[2020-08-03] MEDS: CHOLECALCIFEROL 1,000 UNIT TABLET PO SCH ×2 (09:25→21:17)
[2020-08-03] MEDS: MULTIVITAMIN (CENTRUM) TABLET PO SCH (14:40)
[2020-08-03] MEDS: FOLIC ACID 1 MG TABLET PO SCH (14:41)
[2020-08-03] MEDS: THIAMINE 100 MG TABLET PO SCH (14:41)
[2020-08-03] MEDS: ENOXAPARIN 40 MG/0.4 ML SYRINGE SUBCUT SCH (14:42)
[2020-08-03] MEDS: traZODone 50 MG TABLET PO SCH (21:17)
[2020-08-04] MEDS ORDERED: FUROSEMIDE 40 MG/4 ML VIAL IV SCH ×2 (06:00→09:00)
[2020-08-04 06:04] LABS: Basophils % 0.2 % (0.0-0.8); Eosinophils # 0.1 10*3/uL (0.0-0.87); Eosinophils % 1.4 % (0.00-10.9); Hematocrit 38.6 VOL% (42.0-52.0); Hemoglobin 13.1 GM/DL (14.0-18.0); Immature Granulocytes % 0.5 %; Immature Granulocytes Absolute 0.03 #; Lymphocytes # 0.7 10*3/uL (1.4-4.0); Lymphocytes % 10.9 % (21.2-54.2); Mean Corpuscular HGB Conc 33.9 GM/DL (32-36); Mean Corpuscular Volume 94.4 FL (87-102); Monocytes % 10.3 % (1.7-12.7); Neutrophils % 76.7 % (38.7-73.9); Platelet Count 87 T/CUMM (130-400); Red Blood Count 4.09 MC/CUMM (3.8-5.5); Red Cell Distribution Width 19.1 % (9.3-17.3); White Blood Count 6.3 T/CUMM (4-12)
[2020-08-04 06:13] LABS: Calcium 9.2 MG/DL (8.5-10.1); Osmolality,Calculated 274.1 MOS/KG (273-304); Potassium 3.8 MMOL/L (3.5-5.1)
[2020-08-04 07:24] LABS: Acanthocytes 1+; Ovalocytes Few; Platelet Estimate Adequate; Target Cells Few
[2020-08-04] MEDS: ASPIRIN EC 81 MG TABLET PO SCH (09:59)
[2020-08-04] MEDS: PANTOPRAZOLE 40 MG TABLET PO SCH (09:59)
[2020-08-04] MEDS: MAGNESIUM OXIDE 400 MG TABLET PO SCH (09:59)
[2020-08-04] MEDS: FOLIC ACID 1 MG TABLET PO SCH (09:59)
[2020-08-04] MEDS: MULTIVITAMIN (CENTRUM) TABLET PO SCH (09:59)
[2020-08-04] MEDS: CHOLECALCIFEROL 1,000 UNIT TABLET PO SCH ×2 (09:59→20:11)
[2020-08-04] MEDS: THIAMINE 100 MG TABLET PO SCH (09:59)
[2020-08-04] MEDS: CLOPIDOGREL 75 MG TABLET PO SCH (09:59)
[2020-08-04 10:21] LABS: ABG Base Excess 0.7 MMOL/L (-2.5-2.5); ABG Oxygen Saturation 91.7 % (95-100); ABG PCO2 38.9 MM HG (35-48); ABG PH 7.426 (7.35-7.45); ABG PO2 68.5 MM HG (80-95); ABG TCO2 26.2 MMOL/L (23-27)
[2020-08-04] MEDS ORDERED: POTASSIUM CHLORIDE 20 MEQ TABLET PO ONE (11:07)
[2020-08-04] MEDS: ENOXAPARIN 40 MG/0.4 ML SYRINGE SUBCUT SCH (15:44)
[2020-08-04] MEDS: FUROSEMIDE 40 MG/4 ML VIAL IV SCH (15:44)
[2020-08-04] MEDS ORDERED: SODIUM CHLORIDE 0.9% 250 ML IV ONE (16:55)
[2020-08-04] MEDS: traZODone 50 MG TABLET PO SCH (20:11)
[2020-08-05 05:49] LABS: Basophils % 0.6 % (0.0-0.8); Eosinophils # 0.1 10*3/uL (0.0-0.87); Eosinophils % 1.7 % (0.00-10.9); Hematocrit 44.1 VOL% (42.0-52.0); Hemoglobin 14.3 GM/DL (14.0-18.0); Immature Granulocytes % 0.6 %; Immature Granulocytes Absolute 0.03 #; Lymphocytes # 0.9 10*3/uL (1.4-4.0); Mean Corpuscular HGB Conc 32.4 GM/DL (32-36); Mean Corpuscular Volume 98.4 FL (87-102); Mean Platelet Volume 12.1 FL (9.6-12.0); Monocytes % 10.6 % (1.7-12.7); Neutrophils % 70.5 % (38.7-73.9); Platelet Count 72 T/CUMM (130-400); Red Blood Count 4.48 MC/CUMM (3.8-5.5); Red Cell Distribution Width 19.6 % (9.3-17.3); White Blood Count 5.4 T/CUMM (4-12)
[2020-08-05] MEDS: FUROSEMIDE 40 MG/4 ML VIAL IV SCH ×2 (09:24→17:13)
[2020-08-05] MEDS: THIAMINE 100 MG TABLET PO SCH (09:24)
[2020-08-05] MEDS: FOLIC ACID 1 MG TABLET PO SCH (09:24)
[2020-08-05] MEDS: MULTIVITAMIN (CENTRUM) TABLET PO SCH (09:24)
[2020-08-05] MEDS: CHOLECALCIFEROL 1,000 UNIT TABLET PO SCH ×2 (09:24→20:07)
[2020-08-05] MEDS: MAGNESIUM OXIDE 400 MG TABLET PO SCH (09:24)
[2020-08-05] MEDS: ASPIRIN EC 81 MG TABLET PO SCH (09:25)
[2020-08-05] MEDS: PANTOPRAZOLE 40 MG TABLET PO SCH (09:25)
[2020-08-05] MEDS: CLOPIDOGREL 75 MG TABLET PO SCH (09:25)
[2020-08-05 11:55] LABS: Calcium 9.2 MG/DL (8.5-10.1); Osmolality,Calculated 271.2 MOS/KG (273-304); Potassium 3.8 MMOL/L (3.5-5.1)
[2020-08-05] MEDS: POLYVINYL ALCOHOL 1.4% OPH SOLN 15 ML BOTTLE BOTH EYES SCH ×3 (16:29→20:07)
[2020-08-05] MEDS: ENOXAPARIN 40 MG/0.4 ML SYRINGE SUBCUT SCH (16:29)
[2020-08-05] MEDS: traZODone 50 MG TABLET PO SCH (20:07)
[2020-08-06 05:07] LABS: Basophils % 0.4 % (0.0-0.8); Eosinophils % 0.7 % (0.00-10.9); Hematocrit 39.7 VOL% (42.0-52.0); Hemoglobin 13.5 GM/DL (14.0-18.0); Immature Granulocytes % 0.4 %; Immature Granulocytes Absolute 0.02 #; Lymphocytes # 0.5 10*3/uL (1.4-4.0); Lymphocytes % 8.9 % (21.2-54.2); Mean Platelet Volume 12.1 FL (9.6-12.0); Monocytes % 10.4 % (1.7-12.7); Neutrophils % 79.2 % (38.7-73.9); Platelet Count 87 T/CUMM (130-400); Red Blood Count 4.18 MC/CUMM (3.8-5.5); Red Cell Distribution Width 18.8 % (9.3-17.3); White Blood Count 5.5 T/CUMM (4-12)
[2020-08-06 05:30] LABS: Hypochromasia 1+
[2020-08-06 05:31] LABS: Acanthocytes Few; Microcytosis 1+; Target Cells Slight
[2020-08-06 05:32] LABS: Platelet Estimate Decreased
[2020-08-06 05:52] LABS: Calcium 9.4 MG/DL (8.5-10.1); Osmolality,Calculated 267.5 MOS/KG (273-304); Potassium 3.5 MMOL/L (3.5-5.1)
[2020-08-06] MEDS: CHOLECALCIFEROL 1,000 UNIT TABLET PO SCH ×2 (09:21→20:04)
[2020-08-06] MEDS: MULTIVITAMIN (CENTRUM) TABLET PO SCH (09:21)
[2020-08-06] MEDS: MAGNESIUM OXIDE 400 MG TABLET PO SCH (09:21)
[2020-08-06] MEDS: FOLIC ACID 1 MG TABLET PO SCH (09:22)
[2020-08-06] MEDS: THIAMINE 100 MG TABLET PO SCH (09:22)
[2020-08-06] MEDS: ASPIRIN EC 81 MG TABLET PO SCH (09:22)
[2020-08-06] MEDS: PANTOPRAZOLE 40 MG TABLET PO SCH (09:22)
[2020-08-06] MEDS: CLOPIDOGREL 75 MG TABLET PO SCH (09:22)
[2020-08-06] MEDS: POLYVINYL ALCOHOL 1.4% OPH SOLN 15 ML BOTTLE BOTH EYES SCH ×3 (11:22→20:05)
[2020-08-06] MEDS: FUROSEMIDE 40 MG/4 ML VIAL IV SCH (11:23)
[2020-08-06] MEDS: ENOXAPARIN 40 MG/0.4 ML SYRINGE SUBCUT SCH (17:00)
[2020-08-06] MEDS: FUROSEMIDE 20 MG/2 ML VIAL IV SCH (17:00)
[2020-08-07 06:54] LABS: Basophils % 0.4 % (0.0-0.8); Eosinophils # 0.1 10*3/uL (0.0-0.87); Eosinophils % 1.5 % (0.00-10.9); Hemoglobin 13.2 GM/DL (14.0-18.0); Immature Granulocytes % 0.6 %; Immature Granulocytes Absolute 0.03 #; Lymphocytes # 0.8 10*3/uL (1.4-4.0); Mean Corpuscular HGB Conc 33.8 GM/DL (32-36); Mean Corpuscular Volume 93.5 FL (87-102); Mean Platelet Volume 11.8 FL (9.6-12.0); Monocytes % 10.6 % (1.7-12.7); Neutrophils % 70.9 % (38.7-73.9); Platelet Count 90 T/CUMM (130-400); Red Blood Count 4.17 MC/CUMM (3.8-5.5); Red Cell Distribution Width 18.7 % (9.3-17.3); White Blood Count 5.2 T/CUMM (4-12)
[2020-08-07 07:09] LABS: Calcium 9.2 MG/DL (8.5-10.1); Osmolality,Calculated 267.5 MOS/KG (273-304); Potassium 3.7 MMOL/L (3.5-5.1)
[2020-08-07 07:21] LABS: Eosinophils 2 % (0-10); Hypochromasia Slight; Lymphocytes 16 % (20-55); Microcytosis 1+; Ovalocytes Slight; Segmented Neutrophils 73 % (50-85); Target Cells Slight; Total Cells Counted 100
[2020-08-07 07:22] LABS: Platelet Estimate Decreased
[2020-08-07] MEDS: FUROSEMIDE 20 MG/2 ML VIAL IV SCH (08:52)
[2020-08-07] MEDS: MAGNESIUM OXIDE 400 MG TABLET PO SCH (08:58)
[2020-08-07] MEDS: ASPIRIN EC 81 MG TABLET PO SCH (08:58)
[2020-08-07] MEDS: FOLIC ACID 1 MG TABLET PO SCH (08:58)
[2020-08-07] MEDS: MULTIVITAMIN (CENTRUM) TABLET PO SCH (08:58)
[2020-08-07] MEDS: PANTOPRAZOLE 40 MG TABLET PO SCH (08:58)
[2020-08-07] MEDS: THIAMINE 100 MG TABLET PO SCH (08:58)
[2020-08-07] MEDS: POLYVINYL ALCOHOL 1.4% OPH SOLN 15 ML BOTTLE BOTH EYES SCH ×2 (08:58→14:39)
[2020-08-07] MEDS: CLOPIDOGREL 75 MG TABLET PO SCH (08:58)
[2020-08-07] MEDS: CHOLECALCIFEROL 1,000 UNIT TABLET PO SCH (08:58)
[2020-08-07] MEDS ORDERED: FUROSEMIDE 40 MG/4 ML VIAL IV SCH (12:30)
[2020-08-07 12:54] VITALS: BP 84/71
[2020-08-07] MEDS: ENOXAPARIN 40 MG/0.4 ML SYRINGE SUBCUT SCH (14:59)
== END 2020-08-07 16:58 | DRG 682 ==
LOC: N.EDINP 10:41 → N.ED 10:41 → N.EDINP 17:58 → N.TELEN 18:18 → SUATTDRO 08-04 11:27
PROVIDERS: ADMIT Internal Medicine; ATTEND Internal Medicine Geriatric Medicine

== ENCOUNTER 2020-11-22 12:34 | Inpatient (IN) ==
[2020-11-22] MEDS ORDERED: NITROGLYCERIN 2% OINT 1 INCH/GM PACK TOP STA (12:48)
[2020-11-22] MEDS ORDERED: MORPHINE 10 MG/1 ML VIAL IV STA (12:55)
[2020-11-22] MEDS ORDERED: ONDANSETRON 4 MG/2 ML VIAL IV STA (12:55)
[2020-11-22] MEDS ORDERED: FUROSEMIDE 40 MG/4 ML VIAL IV STA (12:55)
[2020-11-22] MEDS ORDERED: MORPHINE 2 MG/1 ML SYRINGE IV STA (12:57)
[2020-11-22 13:10] LABS: Basophils % 0.5 % (0.0-0.8); Eosinophils # 0.1 10*3/uL (0.0-0.87); Hemoglobin 9.5 GM/DL (14.0-18.0); Immature Granulocytes Absolute 0.04 #; Lymphocytes % 23.8 % (21.2-54.2); Mean Corpuscular HGB Conc 31.7 GM/DL (32-36); Mean Corpuscular Volume 86.5 FL (87-102); Mean Platelet Volume 11.9 FL (9.6-12.0); Monocytes % 21.8 % (1.7-12.7); Neutrophils % 50.9 % (38.7-73.9); Platelet Count 109 T/CUMM (130-400); Red Blood Count 3.47 MC/CUMM (3.8-5.5); Red Cell Distribution Width 18.4 % (9.3-17.3)
[2020-11-22] MEDS ORDERED: ALBUTEROL NEB SOLN 5 MG/ML 20 ML/BOTTLE CONT NEB STA (13:13)
[2020-11-22 13:22] LABS: INR 1.4; PT Patient Result 14.9 SECS (10.5-12.0)
[2020-11-22 13:33] LABS: Alanine Aminotransferase < 9 U/L (16-61); Albumin 3.3 G/DL (3.4-5.0); Alkaline Phosphatase 60 U/L (45-117); Aspartate Amino Transferase 27 U/L (0-37); Blood Urea Nitrogen 37 MG/DL (7-18); Calcium 9.2 MG/DL (8.5-10.1); Carbon Dioxide 22 MMOL/L (21-32); Estimated Glom Filtration Rate 95 ML/MIN; Glucose 75 MG/DL (74-106); Potassium 4.7 MMOL/L (3.5-5.1); Sodium 136 MMOL/L (136-145); Total Protein 7.7 G/DL (6.4-8.2)
[2020-11-22 13:36] LABS: ABG Base Excess -3.6 MMOL/L (-2.5-2.5); ABG HCO3 21.3 MMOL/L (20-26); ABG Oxygen Saturation 95.8 % (95-100); ABG PCO2 31.9 MM HG (35-48); ABG PO2 86.4 MM HG (80-95); ABG TCO2 18.5 MMOL/L (23-27)
[2020-11-22] MEDS ORDERED: MAGNESIUM SULF RIDER 2 GM/50 ML PREMIX IV STA (15:42)
[2020-11-22 16:09] LABS: Bilirubin,Urine Negative (Negative); Blood, Urine Negative (Negative); Glucose,Urine (UA) Negative (Negative); Hyaline Casts,Urine 4 /LPF (0-3); Ketones,Urine Negative (Negative); Mucus,Urine Occasional /LPF (Occasional); Nitrite,Urine Negative (Negative); Protein,Urine Negative; RBC,Urine 1 /HPF (0-4); Urine Appearance CLEAR (Clear); Urine Color Yellow (Yellow); Urine Specific Gravity 1.008 (1.001-1.035); Urine Urobilinogen < 2.0 EU/DL (0.2-1.0)
[2020-11-22] MEDS: SPIRONOLACTONE 25 MG TABLET PO SCH (16:19)
[2020-11-22] MEDS: FUROSEMIDE 40 MG/4 ML VIAL IV SCH (16:20)
[2020-11-22] MEDS ORDERED: DOCUSATE SODIUM 100 MG CAPSULE PO PRN (16:31)
[2020-11-22] MEDS ORDERED: GLUCAGON 1 MG VIAL IM PRN (16:31)
[2020-11-22] MEDS ORDERED: DEXTROSE 50% 25 GM/50 ML VIAL IV PRN (16:31)
[2020-11-22 17:10] LABS: Risk Ratio 1.36; Thyroid Stimulating Hormone 1.39 uIU/ml (0.358-3.74); VLDL Cholesterol 12.4 MG/DL
[2020-11-22] MEDS: SIMVASTATIN 40 MG TABLET PO SCH (21:16)
[2020-11-22 22:54] LABS: Eosinophils 5 % (0-10); Lymphocytes 28 % (20-55); Platelet Estimate Normal; Segmented Neutrophils 51 % (50-85); Total Cells Counted 100
[2020-11-22 22:56] LABS: Hypochromasia Slight
[2020-11-23 06:43] LABS: Basophils % 0.5 % (0.0-0.8); Eosinophils # 0.1 10*3/uL (0.0-0.87); Eosinophils % 2.6 % (0.00-10.9); Hematocrit 31.5 VOL% (42.0-52.0); Hemoglobin 9.7 GM/DL (14.0-18.0); Immature Granulocytes % 0.3 %; Immature Granulocytes Absolute 0.01 #; Lymphocytes # 0.7 10*3/uL (1.4-4.0); Lymphocytes % 17.9 % (21.2-54.2); Mean Corpuscular HGB Conc 30.8 GM/DL (32-36); Mean Corpuscular Volume 89.7 FL (87-102); Mean Platelet Volume 10.5 FL (9.6-12.0); Monocytes % 23.3 % (1.7-12.7); Neutrophils % 55.4 % (38.7-73.9); Platelet Count 171 T/CUMM (130-400); Red Blood Count 3.51 MC/CUMM (3.8-5.5); Red Cell Distribution Width 18.6 % (9.3-17.3); White Blood Count 3.9 T/CUMM (4-12)
[2020-11-23 07:07] LABS: Atypical Lymphocytes Few; Eosinophils 4 % (0-10); Hypochromasia 1+; Lymphocytes 24 % (20-55); Segmented Neutrophils 59 % (50-85); Target Cells Slight; Total Cells Counted 100
[2020-11-23 07:08] LABS: Acanthocytes Few; Microcytosis 1+; Ovalocytes Slight; Platelet Estimate Adequate; Tear Drop Cells Slight
[2020-11-23 07:13] LABS: Calcium 9.1 MG/DL (8.5-10.1); Osmolality,Calculated 281.7 MOS/KG (273-304); Potassium 3.8 MMOL/L (3.5-5.1)
[2020-11-23] MEDS: FUROSEMIDE 40 MG/4 ML VIAL IV SCH ×2 (09:55→15:47)
[2020-11-23] MEDS: SPIRONOLACTONE 25 MG TABLET PO SCH (09:59)
[2020-11-23] MEDS: ASPIRIN EC 81 MG TABLET PO SCH (10:00)
[2020-11-23] MEDS: PANTOPRAZOLE 40 MG TABLET PO SCH (10:00)
[2020-11-23] MEDS: CLOPIDOGREL 75 MG TABLET PO SCH (10:00)
[2020-11-23] MEDS ORDERED: MAGNESIUM SULF RIDER 2 GM/50 ML PREMIX IV ONE (13:36)
[2020-11-23] MEDS: SIMVASTATIN 40 MG TABLET PO SCH (21:52)
[2020-11-24 07:10] LABS: Basophils % 0.4 % (0.0-0.8); Eosinophils # 0.2 10*3/uL (0.0-0.87); Eosinophils % 4.1 % (0.00-10.9); Hematocrit 29.9 VOL% (42.0-52.0); Hemoglobin 9.5 GM/DL (14.0-18.0); Immature Granulocytes % 0.2 %; Immature Granulocytes Absolute 0.01 #; Lymphocytes # 0.7 10*3/uL (1.4-4.0); Mean Corpuscular HGB Conc 31.8 GM/DL (32-36); Mean Corpuscular Volume 87.7 FL (87-102); Mean Platelet Volume 10.3 FL (9.6-12.0); Monocytes % 19.7 % (1.7-12.7); Neutrophils % 59.6 % (38.7-73.9); Platelet Count 160 T/CUMM (130-400); Red Blood Count 3.41 MC/CUMM (3.8-5.5); Red Cell Distribution Width 18.3 % (9.3-17.3); White Blood Count 4.6 T/CUMM (4-12)
[2020-11-24 07:24] LABS: Calcium 8.8 MG/DL (8.5-10.1); Osmolality,Calculated 276.1 MOS/KG (273-304); Potassium 3.9 MMOL/L (3.5-5.1)
[2020-11-24 07:30] LABS: Calcium 8.8 MG/DL (8.5-10.1); Osmolality,Calculated 275.2 MOS/KG (273-304); Potassium 3.8 MMOL/L (3.5-5.1)
[2020-11-24 07:40] LABS: Eosinophils 6 % (0-10); Hypochromasia 1+; Lymphocytes 11 % (20-55); Platelet Estimate Adequate; Segmented Neutrophils 63 % (50-85); Total Cells Counted 100
[2020-11-24 07:41] LABS: Microcytosis 1+
[2020-11-24 08:38] LABS: Barbiturates Screen,Urine Negative (Negative); Benzodiazepines Screen,Urine Negative (Negative); Cannabinoid Screen,Urine Negative (Negative); Opiate Screen,Urine Positive (Negative); Phencyclidine Screen,Urine Negative (Negative)
[2020-11-24] MEDS: SPIRONOLACTONE 25 MG TABLET PO SCH (09:34)
[2020-11-24] MEDS: ASPIRIN EC 81 MG TABLET PO SCH (09:34)
[2020-11-24] MEDS: MULTIVITAMIN (CENTRUM) TABLET PO SCH (09:34)
[2020-11-24] MEDS: FUROSEMIDE 40 MG/4 ML VIAL IV SCH (09:35)
[2020-11-24] MEDS: CLOPIDOGREL 75 MG TABLET PO SCH (09:35)
[2020-11-24] MEDS: PANTOPRAZOLE 40 MG TABLET PO SCH (09:35)
[2020-11-24] MEDS ORDERED: MAGNESIUM SULF RIDER 2 GM/50 ML PREMIX IV ONE (09:47)
[2020-11-24] MEDS ORDERED: MAGNESIUM SULF RIDER 4 GM/100 ML PREMIX IV PRN (09:47)
[2020-11-24] MEDS ORDERED: METOPROLOL TARTRATE 25 MG TABLET PO SCH (09:49)
[2020-11-24] MEDS: SIMVASTATIN 40 MG TABLET PO SCH (20:01)
[2020-11-25 05:19] LABS: Basophils % 0.4 % (0.0-0.8); Eosinophils # 0.2 10*3/uL (0.0-0.87); Eosinophils % 4.7 % (0.00-10.9); Hematocrit 27.7 VOL% (42.0-52.0); Hemoglobin 8.9 GM/DL (14.0-18.0); Immature Granulocytes % 0.4 %; Immature Granulocytes Absolute 0.02 #; Lymphocytes # 0.9 10*3/uL (1.4-4.0); Lymphocytes % 20.2 % (21.2-54.2); Mean Corpuscular HGB Conc 32.1 GM/DL (32-36); Mean Corpuscular Volume 86.6 FL (87-102); Mean Platelet Volume 10.3 FL (9.6-12.0); Monocytes % 18.5 % (1.7-12.7); Neutrophils % 55.8 % (38.7-73.9); Platelet Count 165 T/CUMM (130-400); Red Cell Distribution Width 18.3 % (9.3-17.3); White Blood Count 4.7 T/CUMM (4-12)
[2020-11-25 05:45] LABS: Burr Cells Slight; Eosinophils 3 % (0-10); Hypochromasia 1+; Lymphocytes 17 % (20-55); Ovalocytes Slight; Platelet Estimate Adequate; Segmented Neutrophils 64 % (50-85); Total Cells Counted 100
[2020-11-25 05:46] LABS: Microcytosis 1+
[2020-11-25 05:54] LABS: Calcium 8.5 MG/DL (8.5-10.1); Osmolality,Calculated 272.5 MOS/KG (273-304); Potassium 3.8 MMOL/L (3.5-5.1)
[2020-11-25 09:05] LABS: Albumin 2.9 G/DL (3.4-5.0); Bilirubin,Direct 0.47 MG/DL (0.0-0.20); Bilirubin,Indirect 0.3 MG/DL (0.0-1.0); Bilirubin,Total 0.8 MG/DL (0.20-1.00); Total Protein 6.8 G/DL (6.4-8.2)
[2020-11-25] MEDS: PANTOPRAZOLE 40 MG TABLET PO SCH (09:29)
[2020-11-25] MEDS: MULTIVITAMIN (CENTRUM) TABLET PO SCH (09:29)
[2020-11-25] MEDS: SPIRONOLACTONE 25 MG TABLET PO SCH (09:29)
[2020-11-25] MEDS: ASPIRIN EC 81 MG TABLET PO SCH (09:29)
[2020-11-25] MEDS: CLOPIDOGREL 75 MG TABLET PO SCH (09:29)
[2020-11-25] MEDS: MAGNESIUM SULF RIDER 2 GM/50 ML PREMIX IV PRN (10:17)
[2020-11-25] MEDS: FUROSEMIDE 40 MG/4 ML VIAL IV SCH ×2 (10:17→18:49)
[2020-11-25] MEDS: ACETAMINOPHEN 325 MG TABLET PO PRN (15:07)
[2020-11-25] MEDS: ALBUMIN 5% 25 GM/500 ML VIAL IV SCH (16:46)
[2020-11-25] MEDS: DOBUTamine 500 MG/250 ML PREMIX IV SCH (17:59)
[2020-11-25] MEDS: SIMVASTATIN 40 MG TABLET PO SCH (21:58)
[2020-11-26 06:03] LABS: Basophils % 0.2 % (0.0-0.8); Eosinophils # 0.2 10*3/uL (0.0-0.87); Eosinophils % 3.5 % (0.00-10.9); Hematocrit 26.6 VOL% (42.0-52.0); Hemoglobin 8.7 GM/DL (14.0-18.0); Immature Granulocytes % 0.2 %; Immature Granulocytes Absolute 0.01 #; Lymphocytes # 0.8 10*3/uL (1.4-4.0); Lymphocytes % 18.4 % (21.2-54.2); Mean Corpuscular HGB Conc 32.7 GM/DL (32-36); Mean Corpuscular Volume 86.4 FL (87-102); Mean Platelet Volume 10.4 FL (9.6-12.0); Monocytes % 21.6 % (1.7-12.7); Neutrophils % 56.1 % (38.7-73.9); Platelet Count 156 T/CUMM (130-400); Red Blood Count 3.08 MC/CUMM (3.8-5.5); Red Cell Distribution Width 18.2 % (9.3-17.3); White Blood Count 4.3 T/CUMM (4-12)
[2020-11-26 07:06] LABS: Eosinophils 4 % (0-10); Lymphocytes 19 % (20-55); Platelet Estimate Normal; Segmented Neutrophils 57 % (50-85); Smudge Cells Few; Total Cells Counted 100
[2020-11-26 07:07] LABS: Acanthocytes Few; Anisocytosis 2+; Burr Cells Few; Hypochromasia Slight; Ovalocytes Few; Poikilocytosis 1+; Tear Drop Cells Few
[2020-11-26] MEDS: ALBUMIN 5% 25 GM/500 ML VIAL IV SCH ×2 (08:55→16:27)
[2020-11-26] MEDS ORDERED: metOLazone 2.5 MG TABLET PO SCH (09:00)
[2020-11-26] MEDS: SPIRONOLACTONE 25 MG TABLET PO SCH (09:31)
[2020-11-26] MEDS: MULTIVITAMIN (CENTRUM) TABLET PO SCH (09:31)
[2020-11-26] MEDS: PANTOPRAZOLE 40 MG TABLET PO SCH (09:31)
[2020-11-26] MEDS: CLOPIDOGREL 75 MG TABLET PO SCH (09:31)
[2020-11-26] MEDS: ASPIRIN EC 81 MG TABLET PO SCH (09:31)
[2020-11-26] MEDS: FUROSEMIDE 40 MG/4 ML VIAL IV SCH ×2 (10:38→18:06)
[2020-11-26] MEDS ORDERED: NICOTINE 14 MG/24 HR PATCH TRANSDERM PRN (14:08)
[2020-11-26] MEDS: DOBUTamine 500 MG/250 ML PREMIX IV SCH (16:56)
[2020-11-26] MEDS: SIMVASTATIN 40 MG TABLET PO SCH (21:03)
[2020-11-27 05:19] LABS: Basophils % 0.3 % (0.0-0.8); Eosinophils # 0.2 10*3/uL (0.0-0.87); Hematocrit 25.9 VOL% (42.0-52.0); Hemoglobin 8.5 GM/DL (14.0-18.0); Immature Granulocytes % 0.3 %; Immature Granulocytes Absolute 0.01 #; Lymphocytes # 0.6 10*3/uL (1.4-4.0); Lymphocytes % 15.6 % (21.2-54.2); Mean Corpuscular HGB Conc 32.8 GM/DL (32-36); Mean Corpuscular Volume 86.6 FL (87-102); Mean Platelet Volume 10.3 FL (9.6-12.0); Monocytes % 20.2 % (1.7-12.7); Neutrophils % 58.6 % (38.7-73.9); Platelet Count 147 T/CUMM (130-400); Red Blood Count 2.99 MC/CUMM (3.8-5.5); White Blood Count 3.8 T/CUMM (4-12)
[2020-11-27 05:33] LABS: Osmolality,Calculated 276.1 MOS/KG (273-304); Potassium 3.5 MMOL/L (3.5-5.1)
[2020-11-27 05:45] LABS: Acanthocytes Few; Eosinophils 9 % (0-10); Hypochromasia 1+; Lymphocytes 14 % (20-55); Microcytosis 1+; Ovalocytes Few; Segmented Neutrophils 60 % (50-85); Total Cells Counted 100
[2020-11-27 05:46] LABS: Platelet Estimate Adequate
[2020-11-27] MEDS: DOBUTamine 500 MG/250 ML PREMIX IV SCH (05:46)
[2020-11-27] MEDS: ALBUMIN 5% 25 GM/500 ML VIAL IV SCH ×2 (10:18→16:25)
[2020-11-27] MEDS: SPIRONOLACTONE 25 MG TABLET PO SCH (10:19)
[2020-11-27] MEDS: ASPIRIN EC 81 MG TABLET PO SCH (10:19)
[2020-11-27] MEDS: CLOPIDOGREL 75 MG TABLET PO SCH (10:19)
[2020-11-27] MEDS: MULTIVITAMIN (CENTRUM) TABLET PO SCH (10:19)
[2020-11-27] MEDS: PANTOPRAZOLE 40 MG TABLET PO SCH (10:19)
[2020-11-27] MEDS: metOLazone 5 MG TABLET PO SCH (10:19)
[2020-11-27] MEDS: FUROSEMIDE 40 MG/4 ML VIAL IV SCH ×2 (10:20→16:24)
[2020-11-27] MEDS ORDERED: MAGNESIUM SULF RIDER 2 GM/50 ML PREMIX IV ONE (11:08)
[2020-11-27] MEDS ORDERED: POTASSIUM CHLORIDE 20 MEQ TABLET PO ONE (14:11)
[2020-11-27] MEDS: SIMVASTATIN 40 MG TABLET PO SCH (21:52)
[2020-11-28 07:02] LABS: Basophils % 0.5 % (0.0-0.8); Eosinophils # 0.2 10*3/uL (0.0-0.87); Eosinophils % 5.2 % (0.00-10.9); Hematocrit 26.3 VOL% (42.0-52.0); Hemoglobin 8.3 GM/DL (14.0-18.0); Immature Granulocytes % 0.2 %; Immature Granulocytes Absolute 0.01 #; Lymphocytes # 0.6 10*3/uL (1.4-4.0); Lymphocytes % 15.5 % (21.2-54.2); Mean Corpuscular HGB Conc 31.6 GM/DL (32-36); Mean Corpuscular Volume 87.7 FL (87-102); Mean Platelet Volume 10.7 FL (9.6-12.0); Monocytes % 20.7 % (1.7-12.7); Neutrophils % 57.9 % (38.7-73.9); Platelet Count 158 T/CUMM (130-400); Red Cell Distribution Width 18.3 % (9.3-17.3); White Blood Count 4.1 T/CUMM (4-12)
[2020-11-28 07:16] LABS: Calcium 9.5 MG/DL (8.5-10.1); Osmolality,Calculated 275.2 MOS/KG (273-304); Potassium 3.4 MMOL/L (3.5-5.1)
[2020-11-28 07:31] LABS: Eosinophils 3 % (0-10); Lymphocytes 12 % (20-55); Platelet Estimate Adequate; Segmented Neutrophils 66 % (50-85); Total Cells Counted 100
[2020-11-28 07:32] LABS: Hypochromasia 1+; Microcytosis 1+; Ovalocytes Slight
[2020-11-28] MEDS: ALBUMIN 5% 25 GM/500 ML VIAL IV SCH (09:05)
[2020-11-28] MEDS: FUROSEMIDE 40 MG/4 ML VIAL IV SCH ×2 (09:07→16:19)
[2020-11-28] MEDS: metOLazone 5 MG TABLET PO SCH (09:11)
[2020-11-28] MEDS: FOLIC ACID 1 MG TABLET PO SCH (09:11)
[2020-11-28] MEDS: ASPIRIN EC 81 MG TABLET PO SCH (09:11)
[2020-11-28] MEDS: PANTOPRAZOLE 40 MG TABLET PO SCH (09:11)
[2020-11-28] MEDS: MULTIVITAMIN (CENTRUM) TABLET PO SCH (09:11)
[2020-11-28] MEDS: SPIRONOLACTONE 25 MG TABLET PO SCH (09:12)
[2020-11-28] MEDS: CLOPIDOGREL 75 MG TABLET PO SCH (09:12)
[2020-11-28] MEDS: DOBUTamine 500 MG/250 ML PREMIX IV SCH ×2 (13:39→13:51)
[2020-11-28] MEDS ORDERED: POTASSIUM CHLORIDE 20 MEQ TABLET PO ONE (14:21)
[2020-11-28] MEDS: METOPROLOL TARTRATE 25 MG TABLET PO SCH ×2 (16:19→21:40)
[2020-11-28] MEDS: SIMVASTATIN 40 MG TABLET PO SCH (21:40)
[2020-11-29] MEDS: DOBUTamine 500 MG/250 ML PREMIX IV SCH ×3 (00:38→20:06)
[2020-11-29 04:59] LABS: Basophils % 0.6 % (0.0-0.8); Eosinophils # 0.2 10*3/uL (0.0-0.87); Eosinophils % 4.9 % (0.00-10.9); Hemoglobin 8.1 GM/DL (14.0-18.0); Immature Granulocytes % 0.3 %; Immature Granulocytes Absolute 0.01 #; Lymphocytes # 0.6 10*3/uL (1.4-4.0); Lymphocytes % 16.5 % (21.2-54.2); Mean Corpuscular HGB Conc 32.4 GM/DL (32-36); Mean Corpuscular Volume 86.2 FL (87-102); Mean Platelet Volume 10.5 FL (9.6-12.0); Monocytes % 25.1 % (1.7-12.7); Neutrophils % 52.6 % (38.7-73.9); Platelet Count 150 T/CUMM (130-400); White Blood Count 3.5 T/CUMM (4-12)
[2020-11-29 05:21] LABS: Albumin 3.6 G/DL (3.4-5.0); Calcium 9.5 MG/DL (8.5-10.1); Osmolality,Calculated 275.2 MOS/KG (273-304); Potassium 3.6 MMOL/L (3.5-5.1)
[2020-11-29 05:22] LABS: Alanine Aminotransferase < 9 U/L (16-61); Albumin 3.5 G/DL (3.4-5.0); Alkaline Phosphatase 41 U/L (45-117); Aspartate Amino Transferase 6 U/L (0-37); Bilirubin,Indirect 0.5 MG/DL (0.0-1.0); Total Protein 6.8 G/DL (6.4-8.2)
[2020-11-29 05:23] LABS: Eosinophils 6 % (0-10); Hypochromasia 1+; Lymphocytes 15 % (20-55); Microcytosis 1+; Platelet Estimate Adequate; Segmented Neutrophils 56 % (50-85); Total Cells Counted 100
[2020-11-29] MEDS: FUROSEMIDE 40 MG/4 ML VIAL IV SCH ×2 (08:36→16:55)
[2020-11-29] MEDS: CLOPIDOGREL 75 MG TABLET PO SCH (09:15)
[2020-11-29] MEDS: ASPIRIN EC 81 MG TABLET PO SCH (09:15)
[2020-11-29] MEDS: PANTOPRAZOLE 40 MG TABLET PO SCH (09:15)
[2020-11-29] MEDS: FOLIC ACID 1 MG TABLET PO SCH (09:15)
[2020-11-29] MEDS: MULTIVITAMIN (CENTRUM) TABLET PO SCH (09:15)
[2020-11-29] MEDS: SPIRONOLACTONE 25 MG TABLET PO SCH (09:16)
[2020-11-29] MEDS: METOPROLOL TARTRATE 25 MG TABLET PO SCH ×2 (09:16→20:07)
[2020-11-29] MEDS: metOLazone 5 MG TABLET PO SCH (09:16)
[2020-11-29] MEDS ORDERED: FUROSEMIDE 40 MG/4 ML VIAL IV ONE (13:07)
[2020-11-29] MEDS: SIMVASTATIN 40 MG TABLET PO SCH (20:07)
[2020-11-30] MEDS: DOBUTamine 500 MG/250 ML PREMIX IV SCH ×4 (02:36→22:24)
[2020-11-30 06:00] LABS: Basophils % 0.2 % (0.0-0.8); Eosinophils # 0.2 10*3/uL (0.0-0.87); Eosinophils % 3.7 % (0.00-10.9); Hematocrit 24.8 VOL% (42.0-52.0); Hemoglobin 8.1 GM/DL (14.0-18.0); Immature Granulocytes % 0.2 %; Immature Granulocytes Absolute 0.01 #; Lymphocytes # 0.6 10*3/uL (1.4-4.0); Lymphocytes % 14.7 % (21.2-54.2); Mean Corpuscular HGB Conc 32.7 GM/DL (32-36); Mean Corpuscular Volume 84.9 FL (87-102); Mean Platelet Volume 10.9 FL (9.6-12.0); Monocytes % 21.8 % (1.7-12.7); Neutrophils % 59.4 % (38.7-73.9); Platelet Count 165 T/CUMM (130-400); Red Blood Count 2.92 MC/CUMM (3.8-5.5); Red Cell Distribution Width 17.9 % (9.3-17.3); White Blood Count 4.4 T/CUMM (4-12)
[2020-11-30 06:21] LABS: Calcium 9.3 MG/DL (8.5-10.1); Osmolality,Calculated 277.1 MOS/KG (273-304); Potassium 3.5 MMOL/L (3.5-5.1)
[2020-11-30 06:28] LABS: Eosinophils 5 % (0-10); Hypochromasia 1+; Lymphocytes 13 % (20-55); Segmented Neutrophils 63 % (50-85); Total Cells Counted 100
[2020-11-30 06:29] LABS: Acanthocytes Few; Microcytosis 1+; Ovalocytes Slight; Platelet Estimate Adequate
[2020-11-30] MEDS: MAGNESIUM SULF RIDER 2 GM/50 ML PREMIX IV PRN (08:31)
[2020-11-30] MEDS: FUROSEMIDE 40 MG/4 ML VIAL IV SCH ×2 (08:31→16:23)
[2020-11-30] MEDS: SPIRONOLACTONE 25 MG TABLET PO SCH (09:08)
[2020-11-30] MEDS: MULTIVITAMIN (CENTRUM) TABLET PO SCH (09:08)
[2020-11-30] MEDS: PANTOPRAZOLE 40 MG TABLET PO SCH (09:08)
[2020-11-30] MEDS: metOLazone 5 MG TABLET PO SCH (09:08)
[2020-11-30] MEDS: FOLIC ACID 1 MG TABLET PO SCH (09:08)
[2020-11-30] MEDS: CLOPIDOGREL 75 MG TABLET PO SCH (09:08)
[2020-11-30] MEDS: ASPIRIN EC 81 MG TABLET PO SCH (09:09)
[2020-11-30] MEDS: METOPROLOL TARTRATE 25 MG TABLET PO SCH ×2 (09:09→21:22)
[2020-11-30] MEDS ORDERED: POTASSIUM CHLORIDE 20 MEQ TABLET PO ONE (13:36)
[2020-11-30] MEDS: ENOXAPARIN 40 MG/0.4 ML SYRINGE SUBCUT SCH (13:57)
[2020-11-30] MEDS: MAGNESIUM OXIDE 400 MG TABLET PO SCH (21:22)
[2020-11-30] MEDS: SIMVASTATIN 40 MG TABLET PO SCH (21:22)
[2020-12-01] MEDS: DOBUTamine 500 MG/250 ML PREMIX IV SCH ×3 (05:51→16:39)
[2020-12-01 06:52] LABS: Basophils % 0.2 % (0.0-0.8); Eosinophils # 0.2 10*3/uL (0.0-0.87); Eosinophils % 3.1 % (0.00-10.9); Hematocrit 24.8 VOL% (42.0-52.0); Hemoglobin 8.2 GM/DL (14.0-18.0); Immature Granulocytes % 0.4 %; Immature Granulocytes Absolute 0.02 #; Lymphocytes # 0.8 10*3/uL (1.4-4.0); Mean Corpuscular HGB Conc 33.1 GM/DL (32-36); Mean Corpuscular Volume 84.4 FL (87-102); Mean Platelet Volume 10.4 FL (9.6-12.0); Monocytes % 21.5 % (1.7-12.7); Neutrophils % 59.8 % (38.7-73.9); Platelet Count 163 T/CUMM (130-400); Red Blood Count 2.94 MC/CUMM (3.8-5.5); Red Cell Distribution Width 17.8 % (9.3-17.3); White Blood Count 5.1 T/CUMM (4-12)
[2020-12-01 07:13] LABS: Calcium 9.7 MG/DL (8.5-10.1); Osmolality,Calculated 275.2 MOS/KG (273-304); Potassium 3.5 MMOL/L (3.5-5.1)
[2020-12-01 07:20] LABS: Band Neutrophils 1 % (0-10); Eosinophils 3 % (0-10); Lymphocytes 14 % (20-55); Platelet Estimate Normal; Segmented Neutrophils 67 % (50-85); Total Cells Counted 100
[2020-12-01] MEDS ORDERED: POTASSIUM CHLORIDE 20 MEQ TABLET PO ONE (07:53)
[2020-12-01] MEDS: FUROSEMIDE 40 MG/4 ML VIAL IV SCH ×2 (09:56→18:24)
[2020-12-01] MEDS: MULTIVITAMIN (CENTRUM) TABLET PO SCH (09:57)
[2020-12-01] MEDS: PANTOPRAZOLE 40 MG TABLET PO SCH (09:58)
[2020-12-01] MEDS: CLOPIDOGREL 75 MG TABLET PO SCH (09:58)
[2020-12-01] MEDS: MAGNESIUM OXIDE 400 MG TABLET PO SCH ×2 (09:58→20:43)
[2020-12-01] MEDS: FOLIC ACID 1 MG TABLET PO SCH (09:58)
[2020-12-01] MEDS: ASPIRIN EC 81 MG TABLET PO SCH (09:59)
[2020-12-01] MEDS: SPIRONOLACTONE 25 MG TABLET PO SCH (09:59)
[2020-12-01] MEDS: METOPROLOL TARTRATE 25 MG TABLET PO SCH ×2 (09:59→20:43)
[2020-12-01] MEDS: metOLazone 5 MG TABLET PO SCH (09:59)
[2020-12-01] MEDS: ENOXAPARIN 40 MG/0.4 ML SYRINGE SUBCUT SCH (15:02)
[2020-12-01] MEDS: SIMVASTATIN 40 MG TABLET PO SCH (20:43)
[2020-12-02] MEDS: DOBUTamine 500 MG/250 ML PREMIX IV SCH ×3 (01:26→20:23)
[2020-12-02 05:36] LABS: Basophils % 0.9 % (0.0-0.8); Eosinophils # 0.2 10*3/uL (0.0-0.87); Hemoglobin 8.3 GM/DL (14.0-18.0); Immature Granulocytes % 0.2 %; Immature Granulocytes Absolute 0.01 #; Lymphocytes # 0.8 10*3/uL (1.4-4.0); Lymphocytes % 18.7 % (21.2-54.2); Mean Corpuscular HGB Conc 31.9 GM/DL (32-36); Mean Corpuscular Volume 85.5 FL (87-102); Monocytes % 22.7 % (1.7-12.7); Neutrophils % 52.5 % (38.7-73.9); Platelet Count 182 T/CUMM (130-400); Red Blood Count 3.04 MC/CUMM (3.8-5.5); White Blood Count 4.4 T/CUMM (4-12)
[2020-12-02 06:07] LABS: Eosinophils 7 % (0-10); Hypochromasia 1+; Lymphocytes 23 % (20-55); Microcytosis 1+; Platelet Estimate Adequate; Segmented Neutrophils 53 % (50-85); Total Cells Counted 100
[2020-12-02 06:11] LABS: Calcium 9.8 MG/DL (8.5-10.1); Osmolality,Calculated 273.2 MOS/KG (273-304); Potassium 3.4 MMOL/L (3.5-5.1)
[2020-12-02] MEDS ORDERED: POTASSIUM CHLORIDE 20 MEQ TABLET PO ONE (07:09)
[2020-12-02] MEDS: metOLazone 5 MG TABLET PO SCH (09:17)
[2020-12-02] MEDS: MULTIVITAMIN (CENTRUM) TABLET PO SCH (09:17)
[2020-12-02] MEDS: MAGNESIUM OXIDE 400 MG TABLET PO SCH ×2 (09:17→20:26)
[2020-12-02] MEDS: FOLIC ACID 1 MG TABLET PO SCH (09:18)
[2020-12-02] MEDS: CLOPIDOGREL 75 MG TABLET PO SCH (09:18)
[2020-12-02] MEDS: METOPROLOL TARTRATE 25 MG TABLET PO SCH ×2 (09:18→20:23)
[2020-12-02] MEDS: PANTOPRAZOLE 40 MG TABLET PO SCH (09:19)
[2020-12-02] MEDS: ASPIRIN EC 81 MG TABLET PO SCH (09:19)
[2020-12-02] MEDS: SPIRONOLACTONE 25 MG TABLET PO SCH (09:19)
[2020-12-02] MEDS: FUROSEMIDE 40 MG/4 ML VIAL IV SCH ×2 (10:43→15:26)
[2020-12-02] MEDS: ENOXAPARIN 40 MG/0.4 ML SYRINGE SUBCUT SCH (15:26)
[2020-12-02] MEDS: SIMVASTATIN 40 MG TABLET PO SCH (20:23)
[2020-12-03 04:59] LABS: Basophils % 0.9 % (0.0-0.8); Eosinophils # 0.3 10*3/uL (0.0-0.87); Eosinophils % 5.8 % (0.00-10.9); Hematocrit 24.2 VOL% (42.0-52.0); Hemoglobin 8.1 GM/DL (14.0-18.0); Immature Granulocytes % 0.4 %; Immature Granulocytes Absolute 0.02 #; Lymphocytes # 0.7 10*3/uL (1.4-4.0); Lymphocytes % 15.1 % (21.2-54.2); Mean Corpuscular HGB Conc 33.5 GM/DL (32-36); Mean Corpuscular Volume 83.4 FL (87-102); Mean Platelet Volume 10.4 FL (9.6-12.0); Monocytes % 21.3 % (1.7-12.7); Neutrophils % 56.5 % (38.7-73.9); Platelet Count 181 T/CUMM (130-400); Red Cell Distribution Width 17.9 % (9.3-17.3); White Blood Count 4.5 T/CUMM (4-12)
[2020-12-03 05:17] LABS: Calcium 9.8 MG/DL (8.5-10.1); Osmolality,Calculated 271.5 MOS/KG (273-304); Potassium 3.4 MMOL/L (3.5-5.1)
[2020-12-03] MEDS: DOBUTamine 500 MG/250 ML PREMIX IV SCH ×3 (05:18→22:27)
[2020-12-03 05:26] LABS: Eosinophils 6 % (0-10); Hypochromasia 1+; Lymphocytes 13 % (20-55); Microcytosis 1+; Ovalocytes Slight; Platelet Estimate Adequate; Segmented Neutrophils 70 % (50-85); Total Cells Counted 100
[2020-12-03] MEDS ORDERED: MAGNESIUM SULF RIDER 2 GM/50 ML PREMIX IV ONE (07:24)
[2020-12-03] MEDS ORDERED: POTASSIUM CHLORIDE 20 MEQ TABLET PO ONE (07:24)
[2020-12-03] MEDS: PANTOPRAZOLE 40 MG TABLET PO SCH (10:09)
[2020-12-03] MEDS: METOPROLOL TARTRATE 25 MG TABLET PO SCH ×2 (10:09→21:22)
[2020-12-03] MEDS: ASPIRIN EC 81 MG TABLET PO SCH (10:09)
[2020-12-03] MEDS: FOLIC ACID 1 MG TABLET PO SCH (10:09)
[2020-12-03] MEDS: CLOPIDOGREL 75 MG TABLET PO SCH (10:09)
[2020-12-03] MEDS: MAGNESIUM OXIDE 400 MG TABLET PO SCH ×2 (10:09→21:22)
[2020-12-03] MEDS: MULTIVITAMIN (CENTRUM) TABLET PO SCH (10:09)
[2020-12-03] MEDS: SPIRONOLACTONE 25 MG TABLET PO SCH (10:10)
[2020-12-03] MEDS: FUROSEMIDE 40 MG/4 ML VIAL IV SCH ×2 (10:10→16:33)
[2020-12-03] MEDS: metOLazone 5 MG TABLET PO SCH (10:10)
[2020-12-03] MEDS: ENOXAPARIN 40 MG/0.4 ML SYRINGE SUBCUT SCH (16:32)
[2020-12-03] MEDS: SIMVASTATIN 40 MG TABLET PO SCH (21:22)
[2020-12-04 05:05] LABS: Basophils % 0.9 % (0.0-0.8); Eosinophils # 0.3 10*3/uL (0.0-0.87); Eosinophils % 7.1 % (0.00-10.9); Hemoglobin 7.9 GM/DL (14.0-18.0); Immature Granulocytes % 0.2 %; Immature Granulocytes Absolute 0.01 #; Lymphocytes # 0.7 10*3/uL (1.4-4.0); Lymphocytes % 16.9 % (21.2-54.2); Mean Corpuscular HGB Conc 32.9 GM/DL (32-36); Mean Corpuscular Volume 83.3 FL (87-102); Monocytes % 23.6 % (1.7-12.7); Neutrophils % 51.3 % (38.7-73.9); Platelet Count 175 T/CUMM (130-400); Red Blood Count 2.88 MC/CUMM (3.8-5.5); Red Cell Distribution Width 17.6 % (9.3-17.3); White Blood Count 4.4 T/CUMM (4-12)
[2020-12-04 05:31] LABS: Calcium 9.2 MG/DL (8.5-10.1); Osmolality,Calculated 274.2 MOS/KG (273-304); Potassium 3.6 MMOL/L (3.5-5.1)
[2020-12-04 05:48] LABS: Eosinophils 12 % (0-10); Hypochromasia 1+; Lymphocytes 19 % (20-55); Microcytosis 1+; Ovalocytes Slight; Platelet Estimate Adequate; Segmented Neutrophils 52 % (50-85); Total Cells Counted 100
[2020-12-04] MEDS: DOBUTamine 500 MG/250 ML PREMIX IV SCH ×2 (07:17→16:43)
[2020-12-04] MEDS: SPIRONOLACTONE 25 MG TABLET PO SCH (08:24)
[2020-12-04] MEDS: MULTIVITAMIN (CENTRUM) TABLET PO SCH (08:24)
[2020-12-04] MEDS: ASPIRIN EC 81 MG TABLET PO SCH (08:24)
[2020-12-04] MEDS: FOLIC ACID 1 MG TABLET PO SCH (08:24)
[2020-12-04] MEDS: METOPROLOL TARTRATE 25 MG TABLET PO SCH ×2 (08:24→21:59)
[2020-12-04] MEDS: MAGNESIUM OXIDE 400 MG TABLET PO SCH ×2 (08:25→21:57)
[2020-12-04] MEDS: CLOPIDOGREL 75 MG TABLET PO SCH (08:26)
[2020-12-04] MEDS: PANTOPRAZOLE 40 MG TABLET PO SCH (08:26)
[2020-12-04] MEDS: metOLazone 5 MG TABLET PO SCH (08:26)
[2020-12-04] MEDS: FUROSEMIDE 40 MG/4 ML VIAL IV SCH ×2 (09:25→15:10)
[2020-12-04] MEDS: ENOXAPARIN 40 MG/0.4 ML SYRINGE SUBCUT SCH (15:09)
[2020-12-04] MEDS: SIMVASTATIN 40 MG TABLET PO SCH (21:57)
[2020-12-05] MEDS: DOBUTamine 500 MG/250 ML PREMIX IV SCH ×2 (01:55→12:45)
[2020-12-05 08:22] LABS: Basophils % 0.9 % (0.0-0.8); Eosinophils # 0.3 10*3/uL (0.0-0.87); Eosinophils % 7.6 % (0.00-10.9); Hematocrit 24.2 VOL% (42.0-52.0); Hemoglobin 7.8 GM/DL (14.0-18.0); Immature Granulocytes % 0.2 %; Immature Granulocytes Absolute 0.01 #; Lymphocytes # 0.8 10*3/uL (1.4-4.0); Lymphocytes % 16.9 % (21.2-54.2); Mean Corpuscular HGB Conc 32.2 GM/DL (32-36); Mean Corpuscular Volume 83.2 FL (87-102); Mean Platelet Volume 11.1 FL (9.6-12.0); Monocytes % 20.7 % (1.7-12.7); Neutrophils % 53.7 % (38.7-73.9); Platelet Count 188 T/CUMM (130-400); Red Blood Count 2.91 MC/CUMM (3.8-5.5); Red Cell Distribution Width 17.6 % (9.3-17.3); White Blood Count 4.5 T/CUMM (4-12)
[2020-12-05 08:40] LABS: Calcium 9.3 MG/DL (8.5-10.1); Osmolality,Calculated 273.4 MOS/KG (273-304); Potassium 3.3 MMOL/L (3.5-5.1)
[2020-12-05 08:43] LABS: Eosinophils 6 % (0-10); Hypochromasia 1+; Lymphocytes 15 % (20-55); Microcytosis 1+; Platelet Estimate Adequate; Segmented Neutrophils 60 % (50-85); Total Cells Counted 100
[2020-12-05] MEDS: SPIRONOLACTONE 25 MG TABLET PO SCH (09:10)
[2020-12-05] MEDS: METOPROLOL TARTRATE 25 MG TABLET PO SCH (09:10)
[2020-12-05] MEDS: MULTIVITAMIN (CENTRUM) TABLET PO SCH (09:10)
[2020-12-05] MEDS: ASPIRIN EC 81 MG TABLET PO SCH (09:10)
[2020-12-05] MEDS: CLOPIDOGREL 75 MG TABLET PO SCH (09:10)
[2020-12-05] MEDS: FOLIC ACID 1 MG TABLET PO SCH (09:10)
[2020-12-05] MEDS: metOLazone 5 MG TABLET PO SCH (09:11)
[2020-12-05] MEDS: MAGNESIUM OXIDE 400 MG TABLET PO SCH ×2 (09:11→21:31)
[2020-12-05] MEDS ORDERED: POTASSIUM CHLORIDE 20 MEQ TABLET PO ONE (09:16)
[2020-12-05] MEDS: PANTOPRAZOLE 40 MG TABLET PO SCH (09:54)
[2020-12-05] MEDS: FUROSEMIDE 40 MG/4 ML VIAL IV SCH ×2 (09:58→15:56)
[2020-12-05] MEDS ORDERED: MAGNESIUM SULF RIDER 2 GM/50 ML PREMIX IV ONE (15:24)
[2020-12-05] MEDS: ENOXAPARIN 40 MG/0.4 ML SYRINGE SUBCUT SCH (16:05)
[2020-12-05] MEDS: SIMVASTATIN 40 MG TABLET PO SCH (21:31)
[2020-12-06] MEDS: METOPROLOL TARTRATE 25 MG TABLET PO SCH ×3 (00:32→23:24)
[2020-12-06 06:25] LABS: Basophils # 0.1 10*3/uL (0.0-0.2); Basophils % 1.3 % (0.0-0.8); Eosinophils # 0.3 10*3/uL (0.0-0.87); Eosinophils % 7.3 % (0.00-10.9); Hematocrit 25.3 VOL% (42.0-52.0); Hemoglobin 8.4 GM/DL (14.0-18.0); Immature Granulocytes % 0.2 %; Immature Granulocytes Absolute 0.01 #; Lymphocytes # 0.8 10*3/uL (1.4-4.0); Lymphocytes % 16.8 % (21.2-54.2); Mean Corpuscular HGB Conc 33.2 GM/DL (32-36); Mean Corpuscular Volume 83.8 FL (87-102); Monocytes % 23.7 % (1.7-12.7); Neutrophils % 50.7 % (38.7-73.9); Platelet Count 189 T/CUMM (130-400); Red Blood Count 3.02 MC/CUMM (3.8-5.5); Red Cell Distribution Width 17.6 % (9.3-17.3); White Blood Count 4.7 T/CUMM (4-12)
[2020-12-06 06:39] LABS: Calcium 9.3 MG/DL (8.5-10.1); Osmolality,Calculated 273.4 MOS/KG (273-304); Potassium 3.8 MMOL/L (3.5-5.1)
[2020-12-06 06:46] LABS: Eosinophils 3 % (0-10); Hypochromasia 1+; Lymphocytes 17 % (20-55); Microcytosis 1+; Platelet Estimate Adequate; Segmented Neutrophils 62 % (50-85); Total Cells Counted 100
[2020-12-06] MEDS: SPIRONOLACTONE 25 MG TABLET PO SCH (10:12)
[2020-12-06] MEDS: FOLIC ACID 1 MG TABLET PO SCH (10:13)
[2020-12-06] MEDS: MAGNESIUM OXIDE 400 MG TABLET PO SCH ×2 (10:13→23:23)
[2020-12-06] MEDS: PANTOPRAZOLE 40 MG TABLET PO SCH (10:13)
[2020-12-06] MEDS: CLOPIDOGREL 75 MG TABLET PO SCH (10:13)
[2020-12-06] MEDS: MULTIVITAMIN (CENTRUM) TABLET PO SCH (10:13)
[2020-12-06] MEDS: metOLazone 5 MG TABLET PO SCH (10:13)
[2020-12-06] MEDS: ASPIRIN EC 81 MG TABLET PO SCH (10:20)
[2020-12-06] MEDS: FUROSEMIDE 40 MG/4 ML VIAL IV SCH (10:37)
[2020-12-06 10:55] LABS: Bacteria,Urine Occasional /HPF (Few); Bilirubin,Urine Negative (Negative); Blood, Urine Moderate mg/dL (Negative); Glucose,Urine (UA) Negative (Negative); Hyaline Casts,Urine 21 /LPF (0-3); Ketones,Urine Negative (Negative); Mucus,Urine Occasional /LPF (Occasional); Nitrite,Urine Negative (Negative); Protein,Urine Negative; RBC,Urine 13 /HPF (0-4); Squamous Epithelial Cell,Urine Occasional /HPF (0-10); Urine Appearance Slightly Hazy (Clear); Urine Color Amber (Yellow); Urine Specific Gravity 1.013 (1.001-1.035)
[2020-12-06 11:17] LABS: Albumin 3.6 G/DL (3.4-5.0); Total Protein 7.5 G/DL (6.4-8.2)
[2020-12-06] MEDS: ENOXAPARIN 40 MG/0.4 ML SYRINGE SUBCUT SCH (13:03)
[2020-12-06] MEDS: FUROSEMIDE INJ 200 MG in SODIUM CHLORIDE 0.9% 80 ML IV SCH (17:41)
[2020-12-06] MEDS: SIMVASTATIN 40 MG TABLET PO SCH (23:26)
[2020-12-07 07:42] LABS: Basophils # 0.1 10*3/uL (0.0-0.2); Basophils % 1.3 % (0.0-0.8); Eosinophils # 0.3 10*3/uL (0.0-0.87); Eosinophils % 5.7 % (0.00-10.9); Hemoglobin 8.9 GM/DL (14.0-18.0); Immature Granulocytes % 0.4 %; Immature Granulocytes Absolute 0.02 #; Lymphocytes # 0.8 10*3/uL (1.4-4.0); Lymphocytes % 17.6 % (21.2-54.2); Mean Corpuscular Volume 84.6 FL (87-102); Mean Platelet Volume 11.2 FL (9.6-12.0); Monocytes % 19.7 % (1.7-12.7); Neutrophils % 55.3 % (38.7-73.9); Platelet Count 201 T/CUMM (130-400); Red Blood Count 3.19 MC/CUMM (3.8-5.5); Red Cell Distribution Width 17.6 % (9.3-17.3); White Blood Count 4.8 T/CUMM (4-12)
[2020-12-07 07:59] LABS: Calcium 9.3 MG/DL (8.5-10.1); Osmolality,Calculated 272.7 MOS/KG (273-304); Potassium 3.6 MMOL/L (3.5-5.1); Uric Acid 11.7 MG/DL (3.5-7.2)
[2020-12-07 08:08] LABS: Eosinophils 6 % (0-10); Hypochromasia 1+; Lymphocytes 18 % (20-55); Microcytosis 1+; Ovalocytes Slight; Platelet Estimate Adequate; Segmented Neutrophils 56 % (50-85); Total Cells Counted 100
[2020-12-07] MEDS: ASPIRIN EC 81 MG TABLET PO SCH (08:48)
[2020-12-07] MEDS: FOLIC ACID 1 MG TABLET PO SCH (08:48)
[2020-12-07] MEDS: MULTIVITAMIN (CENTRUM) TABLET PO SCH (08:48)
[2020-12-07] MEDS: PANTOPRAZOLE 40 MG TABLET PO SCH (08:49)
[2020-12-07] MEDS: METOPROLOL TARTRATE 25 MG TABLET PO SCH ×2 (08:49→21:27)
[2020-12-07] MEDS: CLOPIDOGREL 75 MG TABLET PO SCH (08:49)
[2020-12-07] MEDS: MAGNESIUM OXIDE 400 MG TABLET PO SCH ×2 (08:49→21:03)
[2020-12-07] MEDS: ACETAMINOPHEN 325 MG TABLET PO PRN (08:54)
[2020-12-07] MEDS: ENOXAPARIN 40 MG/0.4 ML SYRINGE SUBCUT SCH (14:13)
[2020-12-07] MEDS: FUROSEMIDE INJ 200 MG in SODIUM CHLORIDE 0.9% 80 ML IV SCH (15:34)
[2020-12-07] MEDS: SIMVASTATIN 40 MG TABLET PO SCH (21:03)
[2020-12-08 05:21] LABS: Basophils # 0.1 10*3/uL (0.0-0.2); Basophils % 1.1 % (0.0-0.8); Eosinophils # 0.3 10*3/uL (0.0-0.87); Eosinophils % 5.5 % (0.00-10.9); Hematocrit 24.8 VOL% (42.0-52.0); Hemoglobin 8.2 GM/DL (14.0-18.0); Immature Granulocytes % 0.6 %; Immature Granulocytes Absolute 0.03 #; Lymphocytes # 0.8 10*3/uL (1.4-4.0); Lymphocytes % 15.3 % (21.2-54.2); Mean Corpuscular HGB Conc 33.1 GM/DL (32-36); Mean Corpuscular Volume 82.1 FL (87-102); Mean Platelet Volume 11.4 FL (9.6-12.0); Monocytes % 18.7 % (1.7-12.7); Neutrophils % 58.8 % (38.7-73.9); Platelet Count 199 T/CUMM (130-400); Red Blood Count 3.02 MC/CUMM (3.8-5.5); Red Cell Distribution Width 17.5 % (9.3-17.3); White Blood Count 5.4 T/CUMM (4-12)
[2020-12-08 05:31] LABS: Calcium 9.3 MG/DL (8.5-10.1); Osmolality,Calculated 274.7 MOS/KG (273-304); Potassium 3.4 MMOL/L (3.5-5.1)
[2020-12-08 05:53] LABS: Acanthocytes Few; Elliptocytes Few; Eosinophils 3 % (0-10); Hypochromasia 1+; Lymphocytes 20 % (20-55); Microcytosis 1+; Segmented Neutrophils 59 % (50-85); Total Cells Counted 100
[2020-12-08 05:54] LABS: Platelet Estimate Adequate; Target Cells Slight
[2020-12-08] MEDS: CLOPIDOGREL 75 MG TABLET PO SCH (09:28)
[2020-12-08] MEDS: MULTIVITAMIN (CENTRUM) TABLET PO SCH (09:28)
[2020-12-08] MEDS: POTASSIUM CHLORIDE 20 MEQ TABLET PO PRN ×3 (09:28→18:34)
[2020-12-08] MEDS: ASPIRIN EC 81 MG TABLET PO SCH (09:29)
[2020-12-08] MEDS: METOPROLOL TARTRATE 25 MG TABLET PO SCH ×2 (09:29→20:38)
[2020-12-08] MEDS: MAGNESIUM OXIDE 400 MG TABLET PO SCH ×2 (09:29→20:39)
[2020-12-08] MEDS: FOLIC ACID 1 MG TABLET PO SCH (09:30)
[2020-12-08] MEDS: PANTOPRAZOLE 40 MG TABLET PO SCH (09:30)
[2020-12-08] MEDS: FUROSEMIDE INJ 200 MG in SODIUM CHLORIDE 0.9% 80 ML IV SCH (09:31)
[2020-12-08] MEDS ORDERED: ALUM/MAG/SIMETH/LIDO VISC 1:1 30 ML BOTTLE PO ONE (10:45)
[2020-12-08] MEDS: ENOXAPARIN 40 MG/0.4 ML SYRINGE SUBCUT SCH (15:56)
[2020-12-08] MEDS: SIMVASTATIN 40 MG TABLET PO SCH (20:38)
[2020-12-08] MEDS: ACETAMINOPHEN 325 MG TABLET PO PRN (20:43)
[2020-12-09 05:30] LABS: Basophils # 0.1 10*3/uL (0.0-0.2); Basophils % 0.9 % (0.0-0.8); Eosinophils # 0.2 10*3/uL (0.0-0.87); Eosinophils % 3.5 % (0.00-10.9); Hematocrit 25.3 VOL% (42.0-52.0); Hemoglobin 8.3 GM/DL (14.0-18.0); Immature Granulocytes % 0.5 %; Immature Granulocytes Absolute 0.03 #; Lymphocytes # 0.9 10*3/uL (1.4-4.0); Lymphocytes % 14.9 % (21.2-54.2); Mean Corpuscular HGB Conc 32.8 GM/DL (32-36); Mean Corpuscular Volume 82.7 FL (87-102); Mean Platelet Volume 10.9 FL (9.6-12.0); Neutrophils % 62.2 % (38.7-73.9); Platelet Count 193 T/CUMM (130-400); Red Blood Count 3.06 MC/CUMM (3.8-5.5); Red Cell Distribution Width 17.4 % (9.3-17.3); White Blood Count 5.7 T/CUMM (4-12)
[2020-12-09 05:59] LABS: Calcium 9.4 MG/DL (8.5-10.1); Osmolality,Calculated 274.7 MOS/KG (273-304); Potassium 3.9 MMOL/L (3.5-5.1)
[2020-12-09 06:30] LABS: Band Neutrophils 2 % (0-10); Eosinophils 3 % (0-10); Lymphocytes 16 % (20-55); Segmented Neutrophils 63 % (50-85); Total Cells Counted 100
[2020-12-09 06:31] LABS: Anisocytosis 2+; Burr Cells Few; Hypochromasia 1+; Macrocytosis 1+; Platelet Estimate Normal; Poikilocytosis 1+; Tear Drop Cells Few
[2020-12-09] MEDS: ONDANSETRON 4 MG/2 ML VIAL IV PRN (06:44)
[2020-12-09] MEDS: FUROSEMIDE INJ 200 MG in SODIUM CHLORIDE 0.9% 80 ML IV SCH (06:48)
[2020-12-09] MEDS: PANTOPRAZOLE 40 MG TABLET PO SCH (08:30)
[2020-12-09] MEDS: ASPIRIN EC 81 MG TABLET PO SCH (08:30)
[2020-12-09] MEDS: CLOPIDOGREL 75 MG TABLET PO SCH (08:30)
[2020-12-09] MEDS: MAGNESIUM OXIDE 400 MG TABLET PO SCH ×2 (08:30→20:15)
[2020-12-09] MEDS: MULTIVITAMIN (CENTRUM) TABLET PO SCH (08:30)
[2020-12-09] MEDS: FOLIC ACID 1 MG TABLET PO SCH (08:30)
[2020-12-09] MEDS: METOPROLOL TARTRATE 25 MG TABLET PO SCH ×2 (08:33→20:12)
[2020-12-09] MEDS: ENOXAPARIN 40 MG/0.4 ML SYRINGE SUBCUT SCH (13:56)
[2020-12-09] MEDS: SIMVASTATIN 40 MG TABLET PO SCH (20:15)
[2020-12-10] MEDS: FUROSEMIDE INJ 200 MG in SODIUM CHLORIDE 0.9% 80 ML IV SCH (05:43)
[2020-12-10 06:02] LABS: Basophils # 0.1 10*3/uL (0.0-0.2); Basophils % 0.9 % (0.0-0.8); Eosinophils # 0.3 10*3/uL (0.0-0.87); Eosinophils % 4.7 % (0.00-10.9); Hematocrit 25.8 VOL% (42.0-52.0); Hemoglobin 8.4 GM/DL (14.0-18.0); Immature Granulocytes % 0.5 %; Immature Granulocytes Absolute 0.03 #; Lymphocytes # 0.9 10*3/uL (1.4-4.0); Lymphocytes % 15.5 % (21.2-54.2); Mean Corpuscular HGB Conc 32.6 GM/DL (32-36); Mean Platelet Volume 11.3 FL (9.6-12.0); Monocytes % 17.5 % (1.7-12.7); Neutrophils % 60.9 % (38.7-73.9); Platelet Count 194 T/CUMM (130-400); Red Blood Count 3.11 MC/CUMM (3.8-5.5); Red Cell Distribution Width 17.8 % (9.3-17.3); White Blood Count 5.5 T/CUMM (4-12)
[2020-12-10 06:22] LABS: Calcium 9.3 MG/DL (8.5-10.1); Osmolality,Calculated 278.5 MOS/KG (273-304); Potassium 3.8 MMOL/L (3.5-5.1)
[2020-12-10 07:04] LABS: Acanthocytes Few; Anisocytosis 2+; Atypical Lymphocytes Few; Band Neutrophils 1 % (0-10); Burr Cells Few; Eosinophils 4 % (0-10); Lymphocytes 23 % (20-55); Macrocytosis 1+; Platelet Estimate Normal; Segmented Neutrophils 60 % (50-85); Total Cells Counted 100
[2020-12-10 07:05] LABS: Basophilic Stippling Slight; Hypochromasia Slight; Polychromasia Slight; Target Cells Few; Tear Drop Cells Few
[2020-12-10] MEDS: PANTOPRAZOLE 40 MG TABLET PO SCH (08:39)
[2020-12-10] MEDS: MAGNESIUM OXIDE 400 MG TABLET PO SCH ×2 (08:39→20:44)
[2020-12-10] MEDS: CLOPIDOGREL 75 MG TABLET PO SCH (08:39)
[2020-12-10] MEDS: ASPIRIN EC 81 MG TABLET PO SCH (08:39)
[2020-12-10] MEDS: MULTIVITAMIN (CENTRUM) TABLET PO SCH (08:39)
[2020-12-10] MEDS: FOLIC ACID 1 MG TABLET PO SCH (08:39)
[2020-12-10] MEDS: METOPROLOL TARTRATE 25 MG TABLET PO SCH ×2 (08:39→21:16)
[2020-12-10] MEDS: ENOXAPARIN 40 MG/0.4 ML SYRINGE SUBCUT SCH (14:18)
[2020-12-10] MEDS: SIMVASTATIN 40 MG TABLET PO SCH (20:44)
[2020-12-11] MEDS: FUROSEMIDE INJ 200 MG in SODIUM CHLORIDE 0.9% 80 ML IV SCH ×2 (00:10→21:26)
[2020-12-11 06:09] LABS: Basophils # 0.1 10*3/uL (0.0-0.2); Basophils % 0.9 % (0.0-0.8); Eosinophils # 0.3 10*3/uL (0.0-0.87); Hemoglobin 8.6 GM/DL (14.0-18.0); Immature Granulocytes % 0.7 %; Immature Granulocytes Absolute 0.04 #; Lymphocytes # 0.8 10*3/uL (1.4-4.0); Lymphocytes % 13.4 % (21.2-54.2); Mean Corpuscular HGB Conc 33.1 GM/DL (32-36); Mean Corpuscular Volume 83.3 FL (87-102); Mean Platelet Volume 11.3 FL (9.6-12.0); Platelet Count 204 T/CUMM (130-400); Red Blood Count 3.12 MC/CUMM (3.8-5.5); White Blood Count 5.8 T/CUMM (4-12)
[2020-12-11 06:40] LABS: Eosinophils 6 % (0-10); Hypochromasia 1+; Lymphocytes 12 % (20-55); Microcytosis 1+; Platelet Estimate Adequate; Segmented Neutrophils 66 % (50-85); Total Cells Counted 100
[2020-12-11 06:41] LABS: Burr Cells Slight; Ovalocytes Slight
[2020-12-11 06:55] LABS: Calcium 9.3 MG/DL (8.5-10.1); Osmolality,Calculated 278.5 MOS/KG (273-304); Potassium 3.9 MMOL/L (3.5-5.1)
[2020-12-11] MEDS: CLOPIDOGREL 75 MG TABLET PO SCH (09:19)
[2020-12-11] MEDS: MULTIVITAMIN (CENTRUM) TABLET PO SCH (09:19)
[2020-12-11] MEDS: FOLIC ACID 1 MG TABLET PO SCH (09:20)
[2020-12-11] MEDS: METOPROLOL TARTRATE 25 MG TABLET PO SCH ×2 (09:20→21:27)
[2020-12-11] MEDS: ASPIRIN EC 81 MG TABLET PO SCH (09:20)
[2020-12-11] MEDS: MAGNESIUM OXIDE 400 MG TABLET PO SCH ×2 (09:20→21:27)
[2020-12-11] MEDS: PANTOPRAZOLE 40 MG TABLET PO SCH (09:20)
[2020-12-11] MEDS ORDERED: POTASSIUM CHLORIDE 20 MEQ TABLET PO ONE (10:05)
[2020-12-11] MEDS: ENOXAPARIN 40 MG/0.4 ML SYRINGE SUBCUT SCH (13:41)
[2020-12-11] MEDS: SIMVASTATIN 40 MG TABLET PO SCH (21:27)
[2020-12-12 05:26] LABS: Basophils % 0.6 % (0.0-0.8); Eosinophils # 0.4 10*3/uL (0.0-0.87); Eosinophils % 5.7 % (0.00-10.9); Hematocrit 26.5 VOL% (42.0-52.0); Hemoglobin 8.6 GM/DL (14.0-18.0); Immature Granulocytes % 0.5 %; Immature Granulocytes Absolute 0.03 #; Lymphocytes # 0.9 10*3/uL (1.4-4.0); Lymphocytes % 14.8 % (21.2-54.2); Mean Corpuscular HGB Conc 32.5 GM/DL (32-36); Mean Corpuscular Volume 82.6 FL (87-102); Mean Platelet Volume 11.3 FL (9.6-12.0); Monocytes % 16.4 % (1.7-12.7); Platelet Count 210 T/CUMM (130-400); Red Blood Count 3.21 MC/CUMM (3.8-5.5); Red Cell Distribution Width 17.7 % (9.3-17.3); White Blood Count 6.2 T/CUMM (4-12)
[2020-12-12 05:50] LABS: Eosinophils 9 % (0-10); Lymphocytes 12 % (20-55); Segmented Neutrophils 67 % (50-85); Total Cells Counted 100
[2020-12-12 05:52] LABS: Hypochromasia 1+; Microcytosis 1+; Ovalocytes Slight; Platelet Estimate Adequate
[2020-12-12 06:11] LABS: Calcium 9.9 MG/DL (8.5-10.1); Osmolality,Calculated 280.4 MOS/KG (273-304)
[2020-12-12] MEDS: METOPROLOL TARTRATE 25 MG TABLET PO SCH ×2 (09:10→22:40)
[2020-12-12] MEDS: MULTIVITAMIN (CENTRUM) TABLET PO SCH (09:10)
[2020-12-12] MEDS: MAGNESIUM OXIDE 400 MG TABLET PO SCH ×3 (09:11→22:13)
[2020-12-12] MEDS: FOLIC ACID 1 MG TABLET PO SCH (09:11)
[2020-12-12] MEDS: PANTOPRAZOLE 40 MG TABLET PO SCH (09:11)
[2020-12-12] MEDS: ASPIRIN EC 81 MG TABLET PO SCH (09:11)
[2020-12-12] MEDS: CLOPIDOGREL 75 MG TABLET PO SCH (09:11)
[2020-12-12] MEDS: ENOXAPARIN 40 MG/0.4 ML SYRINGE SUBCUT SCH (17:04)
[2020-12-12] MEDS: FUROSEMIDE INJ 200 MG in SODIUM CHLORIDE 0.9% 80 ML IV SCH (17:07)
[2020-12-12] MEDS: SIMVASTATIN 40 MG TABLET PO SCH (22:13)
[2020-12-13 05:29] LABS: Basophils % 0.7 % (0.0-0.8); Eosinophils # 0.3 10*3/uL (0.0-0.87); Eosinophils % 4.3 % (0.00-10.9); Hematocrit 25.6 VOL% (42.0-52.0); Hemoglobin 8.4 GM/DL (14.0-18.0); Immature Granulocytes % 0.3 %; Immature Granulocytes Absolute 0.02 #; Lymphocytes # 0.7 10*3/uL (1.4-4.0); Lymphocytes % 10.9 % (21.2-54.2); Mean Corpuscular HGB Conc 32.8 GM/DL (32-36); Mean Corpuscular Volume 83.1 FL (87-102); Mean Platelet Volume 10.8 FL (9.6-12.0); Neutrophils % 66.8 % (38.7-73.9); Platelet Count 204 T/CUMM (130-400); Red Blood Count 3.08 MC/CUMM (3.8-5.5); Red Cell Distribution Width 18.3 % (9.3-17.3)
[2020-12-13 05:52] LABS: Eosinophils 6 % (0-10); Hypochromasia 1+; Lymphocytes 16 % (20-55); Microcytosis 1+; Platelet Estimate Adequate; Segmented Neutrophils 64 % (50-85); Total Cells Counted 100
[2020-12-13 05:53] LABS: Ovalocytes Slight
[2020-12-13 06:40] LABS: Calcium 9.9 MG/DL (8.5-10.1); Osmolality,Calculated 281.4 MOS/KG (273-304); Potassium 3.7 MMOL/L (3.5-5.1)
[2020-12-13] MEDS: FUROSEMIDE INJ 200 MG in SODIUM CHLORIDE 0.9% 80 ML IV SCH (10:39)
[2020-12-13] MEDS: CLOPIDOGREL 75 MG TABLET PO SCH (10:39)
[2020-12-13] MEDS: FOLIC ACID 1 MG TABLET PO SCH (10:39)
[2020-12-13] MEDS: MULTIVITAMIN (CENTRUM) TABLET PO SCH (10:40)
[2020-12-13] MEDS: PANTOPRAZOLE 40 MG TABLET PO SCH (10:40)
[2020-12-13] MEDS: allopurinoL 100 MG TABLET PO SCH (10:40)
[2020-12-13] MEDS: ASPIRIN EC 81 MG TABLET PO SCH (10:40)
[2020-12-13] MEDS: METOPROLOL TARTRATE 25 MG TABLET PO SCH ×2 (10:40→21:08)
[2020-12-13] MEDS: MAGNESIUM OXIDE 400 MG TABLET PO SCH ×3 (10:40→21:08)
[2020-12-13] MEDS: FUROSEMIDE 40 MG TABLET PO SCH ×2 (15:07→21:08)
[2020-12-13] MEDS: ENOXAPARIN 40 MG/0.4 ML SYRINGE SUBCUT SCH (15:07)
[2020-12-13] MEDS: SIMVASTATIN 40 MG TABLET PO SCH (21:09)
[2020-12-14] MEDS: ONDANSETRON 4 MG/2 ML VIAL IV PRN (02:01)
[2020-12-14 02:42] LABS: Hematocrit 27.9 VOL% (42.0-52.0); Hemoglobin 8.8 GM/DL (14.0-18.0)
[2020-12-14 06:28] LABS: Basophils % 0.5 % (0.0-0.8); Eosinophils # 0.2 10*3/uL (0.0-0.87); Eosinophils % 3.6 % (0.00-10.9); Hematocrit 26.9 VOL% (42.0-52.0); Hemoglobin 8.7 GM/DL (14.0-18.0); Immature Granulocytes % 0.5 %; Immature Granulocytes Absolute 0.03 #; Lymphocytes # 0.8 10*3/uL (1.4-4.0); Lymphocytes % 13.3 % (21.2-54.2); Mean Corpuscular HGB Conc 32.3 GM/DL (32-36); Mean Corpuscular Volume 83.3 FL (87-102); Mean Platelet Volume 11.2 FL (9.6-12.0); Neutrophils % 64.1 % (38.7-73.9); Platelet Count 197 T/CUMM (130-400); Red Blood Count 3.23 MC/CUMM (3.8-5.5); Red Cell Distribution Width 18.4 % (9.3-17.3); White Blood Count 6.2 T/CUMM (4-12)
[2020-12-14 06:44] LABS: Calcium 9.9 MG/DL (8.5-10.1); Osmolality,Calculated 281.5 MOS/KG (273-304); Potassium 3.8 MMOL/L (3.5-5.1)
[2020-12-14 06:50] LABS: Eosinophils 2 % (0-10); Hypochromasia 1+; Lymphocytes 8 % (20-55); Microcytosis 1+; Ovalocytes Slight; Platelet Estimate Adequate; Segmented Neutrophils 74 % (50-85); Total Cells Counted 100
[2020-12-14] MEDS ORDERED: DIAZEPAM 5 MG TABLET PO ONE (09:00)
[2020-12-14] MEDS: FUROSEMIDE 40 MG TABLET PO SCH ×3 (09:00→20:47)
[2020-12-14] MEDS ORDERED: diphenhydrAMINE CAP 25 MG CAPSULE PO ONE (09:00)
[2020-12-14] MEDS: MAGNESIUM OXIDE 400 MG TABLET PO SCH ×3 (09:05→20:47)
[2020-12-14] MEDS: CLOPIDOGREL 75 MG TABLET PO SCH (09:05)
[2020-12-14] MEDS: MULTIVITAMIN (CENTRUM) TABLET PO SCH (09:05)
[2020-12-14] MEDS: FOLIC ACID 1 MG TABLET PO SCH (09:05)
[2020-12-14] MEDS: allopurinoL 100 MG TABLET PO SCH (09:05)
[2020-12-14] MEDS: ASPIRIN EC 81 MG TABLET PO SCH (09:05)
[2020-12-14] MEDS: PANTOPRAZOLE 40 MG TABLET PO SCH (09:05)
[2020-12-14] MEDS: METOPROLOL TARTRATE 25 MG TABLET PO SCH ×2 (09:06→20:47)
[2020-12-14] MEDS ORDERED: LIDOCAINE 1%/EPI INJ 20 ML VIAL ONE (10:30)
[2020-12-14] MEDS ORDERED: HEPARIN/NACL 0.9% 2 UNITS/ML 1,000 UNIT/500 ML BAG IV ONE (10:30)
[2020-12-14] MEDS ORDERED: MIDAZOLAM 2 MG/2 ML VIAL ONE (10:40)
[2020-12-14] MEDS ORDERED: fentaNYL 100 MCG/2 ML VIAL ONE (10:42)
[2020-12-14] MEDS: ENOXAPARIN 40 MG/0.4 ML SYRINGE SUBCUT SCH (14:18)
[2020-12-14] MEDS: SIMVASTATIN 40 MG TABLET PO SCH (20:47)
[2020-12-15 06:50] LABS: Basophils # 0.1 10*3/uL (0.0-0.2); Basophils % 0.9 % (0.0-0.8); Eosinophils # 0.2 10*3/uL (0.0-0.87); Eosinophils % 3.4 % (0.00-10.9); Hematocrit 26.2 VOL% (42.0-52.0); Hemoglobin 8.6 GM/DL (14.0-18.0); Immature Granulocytes % 0.4 %; Immature Granulocytes Absolute 0.02 #; Lymphocytes # 0.7 10*3/uL (1.4-4.0); Lymphocytes % 12.5 % (21.2-54.2); Mean Corpuscular HGB Conc 32.8 GM/DL (32-36); Mean Corpuscular Volume 83.2 FL (87-102); Mean Platelet Volume 11.2 FL (9.6-12.0); Monocytes % 22.5 % (1.7-12.7); Neutrophils % 60.3 % (38.7-73.9); Platelet Count 197 T/CUMM (130-400); Red Blood Count 3.15 MC/CUMM (3.8-5.5); Red Cell Distribution Width 18.7 % (9.3-17.3); White Blood Count 5.6 T/CUMM (4-12)
[2020-12-15 07:06] LABS: Osmolality,Calculated 283.4 MOS/KG (273-304); Potassium 3.8 MMOL/L (3.5-5.1)
[2020-12-15 07:10] LABS: Eosinophils 4 % (0-10); Lymphocytes 19 % (20-55); Segmented Neutrophils 61 % (50-85); Total Cells Counted 100
[2020-12-15 07:11] LABS: Hypochromasia 2+; Microcytosis 1+; Platelet Estimate Adequate
[2020-12-15] MEDS: MULTIVITAMIN (CENTRUM) TABLET PO SCH (09:56)
[2020-12-15] MEDS: FUROSEMIDE 40 MG TABLET PO SCH ×2 (09:57→14:28)
[2020-12-15] MEDS: METOPROLOL TARTRATE 25 MG TABLET PO SCH (09:57)
[2020-12-15] MEDS: CLOPIDOGREL 75 MG TABLET PO SCH (09:57)
[2020-12-15] MEDS: MAGNESIUM OXIDE 400 MG TABLET PO SCH ×2 (09:57→14:29)
[2020-12-15] MEDS: allopurinoL 100 MG TABLET PO SCH (09:57)
[2020-12-15] MEDS: ASPIRIN EC 81 MG TABLET PO SCH (09:57)
[2020-12-15] MEDS: FOLIC ACID 1 MG TABLET PO SCH (09:57)
[2020-12-15] MEDS: PANTOPRAZOLE 40 MG TABLET PO SCH (09:57)
[2020-12-15] MEDS: POTASSIUM CHLORIDE 20 MEQ TABLET PO PRN (13:08)
[2020-12-15] MEDS: ENOXAPARIN 40 MG/0.4 ML SYRINGE SUBCUT SCH (13:09)
[2020-12-15] MEDS ORDERED: INFLUENZA VIRUS VACCINE 0.5 ML SYRINGE IM ONE (15:13)
[2020-12-15 16:46] VITALS: BP 100/63
== END 2020-12-15 17:19 | disposition hospice, home (50) | DRG 291 ==
LOC: EDUNIT# → EDBD → N.ED 12:34 → SUATTDRO 14:23 → N.EDINP 14:23 → N.TELES 14:54
PROVIDERS: ADMIT Internal Medicine; ATTEND Internal Medicine

== ENCOUNTER 2020-12-19 13:54 | Inpatient (IN) ==
[2020-12-19 15:46] LABS: Basophils % 0.4 % (0.0-0.8); Eosinophils # 0.1 10*3/uL (0.0-0.87); Eosinophils % 0.7 % (0.00-10.9); Hematocrit 27.7 VOL% (42.0-52.0); Immature Granulocytes % 0.5 %; Immature Granulocytes Absolute 0.04 #; Lymphocytes # 0.6 10*3/uL (1.4-4.0); Mean Corpuscular HGB Conc 32.5 GM/DL (32-36); Mean Corpuscular Volume 83.7 FL (87-102); Mean Platelet Volume 11.1 FL (9.6-12.0); Monocytes % 21.1 % (1.7-12.7); Neutrophils % 69.3 % (38.7-73.9); Platelet Count 201 T/CUMM (130-400); Red Blood Count 3.31 MC/CUMM (3.8-5.5); Red Cell Distribution Width 19.5 % (9.3-17.3); White Blood Count 7.4 T/CUMM (4-12)
[2020-12-19 16:06] LABS: Hypochromasia 1+; Lymphocytes 9 % (20-55); Microcytosis 1+; Platelet Estimate Adequate; Segmented Neutrophils 78 % (50-85); Total Cells Counted 100
[2020-12-19 16:09] LABS: Albumin 3.5 G/DL (3.4-5.0); Bilirubin,Total 3.8 MG/DL (0.20-1.00); Potassium 4.5 MMOL/L (3.5-5.1); Total Protein 7.4 G/DL (6.4-8.2)
[2020-12-19] MEDS ORDERED: FUROSEMIDE 100 MG/10 ML VIAL IV STA (16:22)
[2020-12-19] MEDS ORDERED: MAGNESIUM SULF RIDER 2 GM/50 ML PREMIX IV PRN (16:37)
[2020-12-19] MEDS ORDERED: ACETAMINOPHEN 325 MG TABLET PO PRN (16:37)
[2020-12-19] MEDS ORDERED: MAGNESIUM SULF RIDER 4 GM/100 ML PREMIX IV PRN (16:37)
[2020-12-19] MEDS ORDERED: ONDANSETRON 4 MG/2 ML VIAL IV PRN (16:37)
[2020-12-19] MEDS: ENOXAPARIN 30 MG/0.3 ML SYRINGE SUBCUT SCH (17:45)
[2020-12-19 18:00] LABS: ABG Base Excess 6.5 MMOL/L (-2.5-2.5); ABG HCO3 31.8 MMOL/L (20-26); ABG Oxygen Saturation 96.6 % (95-100); ABG PCO2 49.7 MM HG (35-48); ABG PH 7.424 (7.35-7.45); ABG PO2 98.9 MM HG (80-95); ABG TCO2 33.3 MMOL/L (23-27)
[2020-12-19 21:20] LABS: ABG Base Excess 5.6 MMOL/L (-2.5-2.5); ABG HCO3 29.5 MMOL/L (20-26); ABG Oxygen Saturation 99.1 % (95-100); ABG PCO2 48.3 MM HG (35-48); ABG PH 7.415 (7.35-7.45); ABG TCO2 28.5 MMOL/L (23-27)
[2020-12-19] MEDS: METOPROLOL TARTRATE 25 MG TABLET PO SCH (21:42)
[2020-12-19] MEDS: traZODone 50 MG TABLET PO SCH (21:42)
[2020-12-19] MEDS: POTASSIUM CHLORIDE 20 MEQ TABLET PO SCH (21:43)
[2020-12-19] MEDS: MAGNESIUM OXIDE 400 MG TABLET PO SCH (21:43)
[2020-12-19] MEDS: SIMVASTATIN 40 MG TABLET PO SCH (21:43)
[2020-12-20 00:41] LABS: Basophils % 0.4 % (0.0-0.8); Eosinophils # 0.1 10*3/uL (0.0-0.87); Eosinophils % 1.3 % (0.00-10.9); Hematocrit 30.4 VOL% (42.0-52.0); Hemoglobin 9.7 GM/DL (14.0-18.0); Immature Granulocytes % 0.5 %; Immature Granulocytes Absolute 0.04 #; Lymphocytes # 0.8 10*3/uL (1.4-4.0); Lymphocytes % 9.8 % (21.2-54.2); Mean Corpuscular HGB Conc 31.9 GM/DL (32-36); Mean Corpuscular Volume 84.9 FL (87-102); Monocytes % 25.4 % (1.7-12.7); Neutrophils % 62.6 % (38.7-73.9); Platelet Count 190 T/CUMM (130-400); Red Blood Count 3.58 MC/CUMM (3.8-5.5); Red Cell Distribution Width 19.6 % (9.3-17.3); White Blood Count 8.4 T/CUMM (4-12)
[2020-12-20 00:45] LABS: Albumin 3.5 G/DL (3.4-5.0); Bilirubin,Total 3.3 MG/DL (0.20-1.00); Calcium 9.6 MG/DL (8.5-10.1); Osmolality,Calculated 284.4 MOS/KG (273-304); Total Protein 7.5 G/DL (6.4-8.2)
[2020-12-20 01:47] LABS: Eosinophils 1 % (0-10); Lymphocytes 11 % (20-55); Segmented Neutrophils 73 % (50-85); Total Cells Counted 100
[2020-12-20 01:49] LABS: Hypochromasia 2+; Ovalocytes 1+; Platelet Estimate Adequate; Schistocytes Few
[2020-12-20 01:51] LABS: Microcytosis 1+
[2020-12-20] MEDS ORDERED: FUROSEMIDE 40 MG/4 ML VIAL IV SCH (08:00)
[2020-12-20] MEDS: CLOPIDOGREL 75 MG TABLET PO SCH (10:04)
[2020-12-20] MEDS: MULTIVITAMIN (BEROCCA) TABLET PO SCH (10:04)
[2020-12-20] MEDS: ASPIRIN EC 81 MG TABLET PO SCH (10:05)
[2020-12-20] MEDS: MAGNESIUM OXIDE 400 MG TABLET PO SCH ×3 (10:05→20:26)
[2020-12-20] MEDS: allopurinoL 100 MG TABLET PO SCH (10:05)
[2020-12-20] MEDS: POTASSIUM CHLORIDE 20 MEQ TABLET PO SCH ×2 (10:05→20:25)
[2020-12-20] MEDS: PANTOPRAZOLE 40 MG TABLET PO SCH (10:06)
[2020-12-20] MEDS: METOPROLOL TARTRATE 25 MG TABLET PO SCH (10:06)
[2020-12-20] MEDS: MULTIVITAMIN (CENTRUM) TABLET PO SCH (10:06)
[2020-12-20] MEDS: FOLIC ACID 1 MG TABLET PO SCH (10:06)
[2020-12-20] MEDS: CHOLECALCIFEROL 1,000 UNIT TABLET PO SCH (10:06)
[2020-12-20] MEDS ORDERED: ALBUMIN 25% 12.5 GM/50 ML VIAL IV PRN (15:08)
[2020-12-20] MEDS: FUROSEMIDE INJ 200 MG in SODIUM CHLORIDE 0.9% 50 ML IV SCH ×2 (16:43→21:49)
[2020-12-20] MEDS: metOLazone 5 MG TABLET PO SCH (16:44)
[2020-12-20] MEDS: ENOXAPARIN 30 MG/0.3 ML SYRINGE SUBCUT SCH (16:47)
[2020-12-20] MEDS: SIMVASTATIN 40 MG TABLET PO SCH (20:25)
[2020-12-20] MEDS: traZODone 50 MG TABLET PO SCH (20:26)
[2020-12-21 06:23] LABS: Basophils % 0.3 % (0.0-0.8); Eosinophils # 0.2 10*3/uL (0.0-0.87); Eosinophils % 2.7 % (0.00-10.9); Hematocrit 25.2 VOL% (42.0-52.0); Hemoglobin 8.2 GM/DL (14.0-18.0); Immature Granulocytes % 0.5 %; Immature Granulocytes Absolute 0.03 #; Lymphocytes # 0.6 10*3/uL (1.4-4.0); Lymphocytes % 9.2 % (21.2-54.2); Mean Corpuscular HGB Conc 32.5 GM/DL (32-36); Mean Corpuscular Volume 82.9 FL (87-102); Mean Platelet Volume 11.8 FL (9.6-12.0); Monocytes % 20.2 % (1.7-12.7); Neutrophils % 67.1 % (38.7-73.9); Platelet Count 188 T/CUMM (130-400); Red Blood Count 3.04 MC/CUMM (3.8-5.5); Red Cell Distribution Width 19.2 % (9.3-17.3); White Blood Count 6.3 T/CUMM (4-12)
[2020-12-21 06:41] LABS: Calcium 9.6 MG/DL (8.5-10.1); Osmolality,Calculated 287.4 MOS/KG (273-304)
[2020-12-21 06:47] LABS: Eosinophils 1 % (0-10); Hypochromasia 1+; Lymphocytes 12 % (20-55); Microcytosis 1+; Platelet Estimate Adequate; Segmented Neutrophils 71 % (50-85); Total Cells Counted 100
[2020-12-21] MEDS: FUROSEMIDE INJ 200 MG in SODIUM CHLORIDE 0.9% 50 ML IV SCH ×4 (10:07→22:26)
[2020-12-21] MEDS: FOLIC ACID 1 MG TABLET PO SCH (10:08)
[2020-12-21] MEDS: PANTOPRAZOLE 40 MG TABLET PO SCH (10:09)
[2020-12-21] MEDS: MAGNESIUM OXIDE 400 MG TABLET PO SCH ×3 (10:09→22:26)
[2020-12-21] MEDS: CLOPIDOGREL 75 MG TABLET PO SCH (10:10)
[2020-12-21] MEDS: MULTIVITAMIN (BEROCCA) TABLET PO SCH (10:10)
[2020-12-21] MEDS: allopurinoL 100 MG TABLET PO SCH (10:11)
[2020-12-21] MEDS: POTASSIUM CHLORIDE 20 MEQ TABLET PO SCH ×2 (10:11→22:26)
[2020-12-21] MEDS: metOLazone 5 MG TABLET PO SCH (10:12)
[2020-12-21] MEDS: MULTIVITAMIN (CENTRUM) TABLET PO SCH (10:13)
[2020-12-21] MEDS: CHOLECALCIFEROL 1,000 UNIT TABLET PO SCH (10:14)
[2020-12-21] MEDS: ASPIRIN EC 81 MG TABLET PO SCH (10:14)
[2020-12-21] MEDS: ENOXAPARIN 30 MG/0.3 ML SYRINGE SUBCUT SCH (17:25)
[2020-12-21] MEDS: SIMVASTATIN 40 MG TABLET PO SCH (22:26)
[2020-12-21] MEDS: traZODone 50 MG TABLET PO SCH (22:26)
[2020-12-22 07:23] LABS: Basophils % 0.2 % (0.0-0.8); Eosinophils # 0.2 10*3/uL (0.0-0.87); Eosinophils % 1.8 % (0.00-10.9); Hematocrit 24.6 VOL% (42.0-52.0); Hemoglobin 8.2 GM/DL (14.0-18.0); Immature Granulocytes % 0.5 %; Immature Granulocytes Absolute 0.04 #; Lymphocytes # 0.6 10*3/uL (1.4-4.0); Lymphocytes % 7.4 % (21.2-54.2); Mean Corpuscular HGB Conc 33.3 GM/DL (32-36); Mean Platelet Volume 11.1 FL (9.6-12.0); Neutrophils % 78.1 % (38.7-73.9); Platelet Count 163 T/CUMM (130-400); Red Cell Distribution Width 19.3 % (9.3-17.3); White Blood Count 8.1 T/CUMM (4-12)
[2020-12-22 07:43] LABS: % Iron Saturation 5.1 % (18-50); Calcium 9.7 MG/DL (8.5-10.1); Osmolality,Calculated 285.4 MOS/KG (273-304); Potassium 4.1 MMOL/L (3.5-5.1)
[2020-12-22 08:41] LABS: Folate > 24.00 NG/ML (5.38-24.0); Vitamin B12 1314 PG/ML (211-911)
[2020-12-22] MEDS: CLOPIDOGREL 75 MG TABLET PO SCH (10:08)
[2020-12-22] MEDS: MULTIVITAMIN (CENTRUM) TABLET PO SCH (10:09)
[2020-12-22] MEDS: MAGNESIUM OXIDE 400 MG TABLET PO SCH ×3 (10:09→21:52)
[2020-12-22] MEDS: FOLIC ACID 1 MG TABLET PO SCH (10:09)
[2020-12-22] MEDS: MULTIVITAMIN (BEROCCA) TABLET PO SCH (10:09)
[2020-12-22] MEDS: ASPIRIN EC 81 MG TABLET PO SCH (10:09)
[2020-12-22] MEDS: CHOLECALCIFEROL 1,000 UNIT TABLET PO SCH (10:09)
[2020-12-22] MEDS: POTASSIUM CHLORIDE 20 MEQ TABLET PO SCH ×2 (10:09→21:52)
[2020-12-22] MEDS: allopurinoL 100 MG TABLET PO SCH (10:10)
[2020-12-22] MEDS: PANTOPRAZOLE 40 MG TABLET PO SCH (10:10)
[2020-12-22] MEDS: metOLazone 5 MG TABLET PO SCH (10:10)
[2020-12-22] MEDS: FUROSEMIDE INJ 200 MG in SODIUM CHLORIDE 0.9% 50 ML IV SCH ×3 (10:20→21:53)
[2020-12-22] MEDS ORDERED: TUBERCULIN SKIN TEST 0.1 ML SYRINGE INTRADERM ONE (10:40)
[2020-12-22] MEDS: ENOXAPARIN 30 MG/0.3 ML SYRINGE SUBCUT SCH (17:12)
[2020-12-22] MEDS: SIMVASTATIN 40 MG TABLET PO SCH (21:52)
[2020-12-22] MEDS: traZODone 50 MG TABLET PO SCH (21:52)
[2020-12-23 04:25] LABS: Basophils % 0.3 % (0.0-0.8); Eosinophils # 0.2 10*3/uL (0.0-0.87); Eosinophils % 2.7 % (0.00-10.9); Hematocrit 23.4 VOL% (42.0-52.0); Hemoglobin 7.6 GM/DL (14.0-18.0); Immature Granulocytes % 0.4 %; Immature Granulocytes Absolute 0.03 #; Lymphocytes # 0.5 10*3/uL (1.4-4.0); Lymphocytes % 6.5 % (21.2-54.2); Mean Corpuscular HGB Conc 32.5 GM/DL (32-36); Mean Corpuscular Volume 81.5 FL (87-102); Mean Platelet Volume 12.1 FL (9.6-12.0); Monocytes % 13.1 % (1.7-12.7); Platelet Count 165 T/CUMM (130-400); Red Blood Count 2.87 MC/CUMM (3.8-5.5); Red Cell Distribution Width 19.1 % (9.3-17.3); White Blood Count 7.5 T/CUMM (4-12)
[2020-12-23 04:42] LABS: Calcium 9.5 MG/DL (8.5-10.1); Osmolality,Calculated 282.7 MOS/KG (273-304); Potassium 3.8 MMOL/L (3.5-5.1)
[2020-12-23] MEDS: FUROSEMIDE INJ 200 MG in SODIUM CHLORIDE 0.9% 50 ML IV SCH ×3 (09:29→21:18)
[2020-12-23] MEDS: MAGNESIUM OXIDE 400 MG TABLET PO SCH ×3 (09:45→21:18)
[2020-12-23] MEDS: MULTIVITAMIN (BEROCCA) TABLET PO SCH (09:45)
[2020-12-23] MEDS: metOLazone 5 MG TABLET PO SCH (09:45)
[2020-12-23] MEDS: allopurinoL 100 MG TABLET PO SCH (09:46)
[2020-12-23] MEDS: CHOLECALCIFEROL 1,000 UNIT TABLET PO SCH (09:46)
[2020-12-23] MEDS: POTASSIUM CHLORIDE 20 MEQ TABLET PO SCH ×2 (09:46→21:18)
[2020-12-23] MEDS: ASPIRIN EC 81 MG TABLET PO SCH (09:47)
[2020-12-23] MEDS: FOLIC ACID 1 MG TABLET PO SCH (09:47)
[2020-12-23] MEDS: PANTOPRAZOLE 40 MG TABLET PO SCH (09:47)
[2020-12-23] MEDS: CLOPIDOGREL 75 MG TABLET PO SCH (09:47)
[2020-12-23] MEDS: MULTIVITAMIN (CENTRUM) TABLET PO SCH (09:47)
[2020-12-23] MEDS: FERROUS GLUCONATE 324 MG TABLET PO SCH (09:47)
[2020-12-23] MEDS: ENOXAPARIN 30 MG/0.3 ML SYRINGE SUBCUT SCH (16:57)
[2020-12-23] MEDS: traZODone 50 MG TABLET PO SCH (21:18)
[2020-12-23] MEDS: SIMVASTATIN 40 MG TABLET PO SCH (21:18)
[2020-12-24] MEDS: metOLazone 5 MG TABLET PO SCH (09:47)
[2020-12-24] MEDS: ASPIRIN EC 81 MG TABLET PO SCH (09:47)
[2020-12-24] MEDS: MULTIVITAMIN (BEROCCA) TABLET PO SCH (09:47)
[2020-12-24] MEDS: MAGNESIUM OXIDE 400 MG TABLET PO SCH ×3 (09:47→21:22)
[2020-12-24] MEDS: CHOLECALCIFEROL 1,000 UNIT TABLET PO SCH (09:47)
[2020-12-24] MEDS: allopurinoL 100 MG TABLET PO SCH (09:47)
[2020-12-24] MEDS: PANTOPRAZOLE 40 MG TABLET PO SCH (09:48)
[2020-12-24] MEDS: POTASSIUM CHLORIDE 20 MEQ TABLET PO SCH ×2 (09:48→21:22)
[2020-12-24] MEDS: CLOPIDOGREL 75 MG TABLET PO SCH (09:48)
[2020-12-24] MEDS: FOLIC ACID 1 MG TABLET PO SCH (09:48)
[2020-12-24] MEDS: MULTIVITAMIN (CENTRUM) TABLET PO SCH (09:48)
[2020-12-24] MEDS: FERROUS GLUCONATE 324 MG TABLET PO SCH (10:42)
[2020-12-24] MEDS: FUROSEMIDE INJ 200 MG in SODIUM CHLORIDE 0.9% 50 ML IV SCH ×3 (11:44→21:20)
[2020-12-24 17:33] LABS: Calcium 9.3 MG/DL (8.5-10.1); Osmolality,Calculated 275.4 MOS/KG (273-304); Potassium 3.9 MMOL/L (3.5-5.1)
[2020-12-24] MEDS: ENOXAPARIN 30 MG/0.3 ML SYRINGE SUBCUT SCH (18:39)
[2020-12-24] MEDS: SIMVASTATIN 40 MG TABLET PO SCH (21:22)
[2020-12-24] MEDS: traZODone 50 MG TABLET PO SCH (21:22)
[2020-12-25 05:11] LABS: Basophils % 0.4 % (0.0-0.8); Eosinophils # 0.2 10*3/uL (0.0-0.87); Hematocrit 24.7 VOL% (42.0-52.0); Hemoglobin 8.1 GM/DL (14.0-18.0); Immature Granulocytes % 0.4 %; Immature Granulocytes Absolute 0.03 #; Lymphocytes # 0.7 10*3/uL (1.4-4.0); Lymphocytes % 9.7 % (21.2-54.2); Mean Corpuscular HGB Conc 32.8 GM/DL (32-36); Mean Corpuscular Volume 80.7 FL (87-102); Mean Platelet Volume 11.8 FL (9.6-12.0); Neutrophils % 72.5 % (38.7-73.9); Platelet Count 178 T/CUMM (130-400); Red Blood Count 3.06 MC/CUMM (3.8-5.5); Red Cell Distribution Width 19.3 % (9.3-17.3)
[2020-12-25 05:43] LABS: Calcium 9.8 MG/DL (8.5-10.1); Osmolality,Calculated 282.8 MOS/KG (273-304); Potassium 3.7 MMOL/L (3.5-5.1)
[2020-12-25] MEDS: FUROSEMIDE INJ 200 MG in SODIUM CHLORIDE 0.9% 50 ML IV SCH ×3 (10:38→23:15)
[2020-12-25] MEDS: MULTIVITAMIN (CENTRUM) TABLET PO SCH (11:19)
[2020-12-25] MEDS: ASPIRIN EC 81 MG TABLET PO SCH (11:19)
[2020-12-25] MEDS: MULTIVITAMIN (BEROCCA) TABLET PO SCH (11:19)
[2020-12-25] MEDS: POTASSIUM CHLORIDE 20 MEQ TABLET PO SCH ×2 (11:20→23:12)
[2020-12-25] MEDS: CLOPIDOGREL 75 MG TABLET PO SCH (11:20)
[2020-12-25] MEDS: FOLIC ACID 1 MG TABLET PO SCH (11:20)
[2020-12-25] MEDS: FERROUS GLUCONATE 324 MG TABLET PO SCH (11:20)
[2020-12-25] MEDS: MAGNESIUM OXIDE 400 MG TABLET PO SCH ×3 (11:20→23:12)
[2020-12-25] MEDS: metOLazone 5 MG TABLET PO SCH (11:21)
[2020-12-25] MEDS: PANTOPRAZOLE 40 MG TABLET PO SCH (11:21)
[2020-12-25] MEDS: allopurinoL 100 MG TABLET PO SCH (11:21)
[2020-12-25] MEDS: CHOLECALCIFEROL 1,000 UNIT TABLET PO SCH (11:21)
[2020-12-25] MEDS: SIMVASTATIN 40 MG TABLET PO SCH (23:12)
[2020-12-25] MEDS: traZODone 50 MG TABLET PO SCH (23:12)
[2020-12-26 07:00] LABS: Basophils % 0.3 % (0.0-0.8); Eosinophils # 0.1 10*3/uL (0.0-0.87); Eosinophils % 1.8 % (0.00-10.9); Hematocrit 25.8 VOL% (42.0-52.0); Hemoglobin 8.2 GM/DL (14.0-18.0); Immature Granulocytes % 1.3 %; Immature Granulocytes Absolute 0.09 #; Lymphocytes # 0.5 10*3/uL (1.4-4.0); Lymphocytes % 7.5 % (21.2-54.2); Mean Corpuscular HGB Conc 31.8 GM/DL (32-36); Mean Corpuscular Volume 81.9 FL (87-102); Mean Platelet Volume 12.1 FL (9.6-12.0); Monocytes % 16.1 % (1.7-12.7); Platelet Count 188 T/CUMM (130-400); Red Blood Count 3.15 MC/CUMM (3.8-5.5); Red Cell Distribution Width 19.7 % (9.3-17.3); White Blood Count 7.2 T/CUMM (4-12)
[2020-12-26 07:20] LABS: Calcium 9.8 MG/DL (8.5-10.1); Osmolality,Calculated 281.9 MOS/KG (273-304); Potassium 3.2 MMOL/L (3.5-5.1)
[2020-12-26 07:24] LABS: Eosinophils 3 % (0-10); Hypochromasia 2+; Lymphocytes 3 % (20-55); Microcytosis 1+; Ovalocytes Slight; Platelet Estimate Adequate; Segmented Neutrophils 81 % (50-85); Total Cells Counted 100
[2020-12-26] MEDS ORDERED: BUPIVACAINE MPF 0.25% 30 ML VIAL ONE (08:24)
[2020-12-26] MEDS ORDERED: HEPARIN 5,000 UNIT/1 ML VIAL ONE (08:24)
[2020-12-26] MEDS ORDERED: LIDOCAINE 1%/EPI INJ 20 ML VIAL ONE (08:24)
[2020-12-26] MEDS: FUROSEMIDE INJ 200 MG in SODIUM CHLORIDE 0.9% 50 ML IV SCH ×3 (10:35→22:39)
[2020-12-26 11:42] LABS: Hepatitis B Core IgM Quant 0.08 Index; Hepatitis B Surface Ag Quant < 0.10 Index; Hepatitis B Surface Ag Result Non-Reactive (NonReactive); Hepatitis C Virus Ab Quant 0.13 Index; Hepatitis C Virus Ab Result Non-Reactive (NonReactive)
[2020-12-26] MEDS ORDERED: EPOETIN ALFA-EPBX 10,000 UNIT/ML VIAL IV PRN (12:33)
[2020-12-26] MEDS ORDERED: HEPARIN 10,000 UNIT/10 ML VIAL IV SCH (15:15)
[2020-12-26] MEDS: CHOLECALCIFEROL 1,000 UNIT TABLET PO SCH (15:24)
[2020-12-26] MEDS: MAGNESIUM OXIDE 400 MG TABLET PO SCH ×3 (15:24→22:35)
[2020-12-26] MEDS: MULTIVITAMIN (BEROCCA) TABLET PO SCH (15:24)
[2020-12-26] MEDS: FOLIC ACID 1 MG TABLET PO SCH (15:24)
[2020-12-26] MEDS: ASPIRIN EC 81 MG TABLET PO SCH (15:24)
[2020-12-26] MEDS: MULTIVITAMIN (CENTRUM) TABLET PO SCH (15:24)
[2020-12-26] MEDS: FERROUS GLUCONATE 324 MG TABLET PO SCH (15:24)
[2020-12-26] MEDS: CLOPIDOGREL 75 MG TABLET PO SCH (15:24)
[2020-12-26] MEDS: PANTOPRAZOLE 40 MG TABLET PO SCH (15:24)
[2020-12-26] MEDS: metOLazone 5 MG TABLET PO SCH (15:25)
[2020-12-26] MEDS: allopurinoL 100 MG TABLET PO SCH (15:25)
[2020-12-26] MEDS: POTASSIUM CHLORIDE 20 MEQ TABLET PO SCH (15:51)
[2020-12-26] MEDS: SIMVASTATIN 40 MG TABLET PO SCH (22:35)
[2020-12-26] MEDS: traZODone 50 MG TABLET PO SCH (22:35)
[2020-12-27 07:25] LABS: Calcium 9.5 MG/DL (8.5-10.1); Osmolality,Calculated 283.4 MOS/KG (273-304); Potassium 2.7 MMOL/L (3.5-5.1)
[2020-12-27 07:33] LABS: Basophils % 0.2 % (0.0-0.8); Eosinophils # 0.1 10*3/uL (0.0-0.87); Eosinophils % 0.5 % (0.00-10.9); Hematocrit 22.8 VOL% (42.0-52.0); Hemoglobin 7.4 GM/DL (14.0-18.0); Immature Granulocytes % 0.7 %; Immature Granulocytes Absolute 0.07 #; Lymphocytes # 0.5 10*3/uL (1.4-4.0); Lymphocytes % 4.9 % (21.2-54.2); Mean Corpuscular HGB Conc 32.5 GM/DL (32-36); Mean Platelet Volume 12.8 FL (9.6-12.0); Monocytes % 15.2 % (1.7-12.7); Neutrophils % 78.5 % (38.7-73.9); Platelet Count 180 T/CUMM (130-400); Red Blood Count 2.78 MC/CUMM (3.8-5.5); Red Cell Distribution Width 19.4 % (9.3-17.3)
[2020-12-27 07:38] LABS: Hypochromasia 1+; Microcytosis 1+
[2020-12-27 07:39] LABS: Acanthocytes Few; Ovalocytes Slight; Platelet Estimate Adequate; Target Cells Slight
[2020-12-27] MEDS ORDERED: POTASSIUM CHLORIDE 20 MEQ TABLET PO ONE (08:16)
[2020-12-27] MEDS: FOLIC ACID 1 MG TABLET PO SCH (14:07)
[2020-12-27] MEDS: CLOPIDOGREL 75 MG TABLET PO SCH (14:07)
[2020-12-27] MEDS: FERROUS GLUCONATE 324 MG TABLET PO SCH (14:07)
[2020-12-27] MEDS: PANTOPRAZOLE 40 MG TABLET PO SCH (14:07)
[2020-12-27] MEDS: ASPIRIN EC 81 MG TABLET PO SCH (14:08)
[2020-12-27] MEDS: MULTIVITAMIN (CENTRUM) TABLET PO SCH (14:08)
[2020-12-27] MEDS: allopurinoL 100 MG TABLET PO SCH (14:08)
[2020-12-27] MEDS: CHOLECALCIFEROL 1,000 UNIT TABLET PO SCH (14:08)
[2020-12-27] MEDS: MULTIVITAMIN (BEROCCA) TABLET PO SCH (14:08)
[2020-12-27] MEDS: FUROSEMIDE INJ 200 MG in SODIUM CHLORIDE 0.9% 50 ML IV SCH ×3 (14:41→21:16)
[2020-12-27] MEDS: MAGNESIUM OXIDE 400 MG TABLET PO SCH ×3 (15:52→21:15)
[2020-12-27] MEDS: metOLazone 5 MG TABLET PO SCH (17:24)
[2020-12-27] MEDS: POTASSIUM CHLORIDE 20 MEQ TABLET PO SCH (17:24)
[2020-12-27] MEDS: SIMVASTATIN 40 MG TABLET PO SCH (21:15)
[2020-12-27] MEDS: traZODone 50 MG TABLET PO SCH (21:15)
[2020-12-28 07:26] LABS: Basophils % 0.3 % (0.0-0.8); Eosinophils # 0.1 10*3/uL (0.0-0.87); Hematocrit 26.2 VOL% (42.0-52.0); Hemoglobin 8.4 GM/DL (14.0-18.0); Immature Granulocytes % 1.2 %; Immature Granulocytes Absolute 0.11 #; Lymphocytes # 0.7 10*3/uL (1.4-4.0); Lymphocytes % 7.6 % (21.2-54.2); Mean Corpuscular HGB Conc 32.1 GM/DL (32-36); Mean Corpuscular Volume 82.9 FL (87-102); Mean Platelet Volume 11.4 FL (9.6-12.0); Monocytes % 20.3 % (1.7-12.7); Neutrophils % 69.6 % (38.7-73.9); Platelet Count 169 T/CUMM (130-400); Red Blood Count 3.16 MC/CUMM (3.8-5.5); Red Cell Distribution Width 19.9 % (9.3-17.3); White Blood Count 8.9 T/CUMM (4-12)
[2020-12-28 07:40] LABS: Calcium 9.4 MG/DL (8.5-10.1); Osmolality,Calculated 278.2 MOS/KG (273-304); Potassium 3.5 MMOL/L (3.5-5.1)
[2020-12-28 07:57] LABS: Eosinophils 1 % (0-10); Hypochromasia 2+; Lymphocytes 6 % (20-55); Platelet Estimate Adequate; Segmented Neutrophils 81 % (50-85); Total Cells Counted 100
[2020-12-28 07:58] LABS: Anisocytosis Slight
[2020-12-28] MEDS: allopurinoL 100 MG TABLET PO SCH (09:05)
[2020-12-28] MEDS: PANTOPRAZOLE 40 MG TABLET PO SCH (09:05)
[2020-12-28] MEDS: MULTIVITAMIN (CENTRUM) TABLET PO SCH (09:05)
[2020-12-28] MEDS: CHOLECALCIFEROL 1,000 UNIT TABLET PO SCH (09:06)
[2020-12-28] MEDS: FERROUS GLUCONATE 324 MG TABLET PO SCH (09:06)
[2020-12-28] MEDS: metOLazone 5 MG TABLET PO SCH (09:06)
[2020-12-28] MEDS: CLOPIDOGREL 75 MG TABLET PO SCH (09:06)
[2020-12-28] MEDS: ASPIRIN EC 81 MG TABLET PO SCH (09:06)
[2020-12-28] MEDS: FOLIC ACID 1 MG TABLET PO SCH (09:06)
[2020-12-28] MEDS: MULTIVITAMIN (BEROCCA) TABLET PO SCH (09:06)
[2020-12-28] MEDS: POTASSIUM CHLORIDE 20 MEQ TABLET PO SCH (09:07)
[2020-12-28] MEDS: FUROSEMIDE INJ 200 MG in SODIUM CHLORIDE 0.9% 50 ML IV SCH ×3 (09:07→20:43)
[2020-12-28] MEDS ORDERED: BUPIVACAINE MPF 0.25% 30 ML VIAL ONE (10:18)
[2020-12-28] MEDS ORDERED: LIDOCAINE 1%/EPI INJ 20 ML VIAL ONE (10:18)
[2020-12-28] MEDS ORDERED: HEPARIN 5,000 UNIT/1 ML VIAL ONE (10:18)
[2020-12-28] MEDS ORDERED: SODIUM CHLORIDE 0.9% 250 ML IV SCH (11:00)
[2020-12-28] MEDS: MAGNESIUM OXIDE 400 MG TABLET PO SCH ×3 (13:27→20:42)
[2020-12-28] MEDS: traZODone 50 MG TABLET PO SCH (20:42)
[2020-12-28] MEDS: SIMVASTATIN 40 MG TABLET PO SCH (20:42)
[2020-12-29 07:26] LABS: Basophils % 0.4 % (0.0-0.8); Eosinophils # 0.1 10*3/uL (0.0-0.87); Eosinophils % 1.4 % (0.00-10.9); Hematocrit 28.2 VOL% (42.0-52.0); Hemoglobin 8.7 GM/DL (14.0-18.0); Immature Granulocytes % 0.9 %; Immature Granulocytes Absolute 0.09 #; Lymphocytes # 0.7 10*3/uL (1.4-4.0); Lymphocytes % 7.1 % (21.2-54.2); Mean Corpuscular HGB Conc 30.9 GM/DL (32-36); Mean Corpuscular Volume 84.9 FL (87-102); Mean Platelet Volume 12.6 FL (9.6-12.0); Monocytes % 15.9 % (1.7-12.7); Neutrophils % 74.3 % (38.7-73.9); Platelet Count 133 T/CUMM (130-400); Red Blood Count 3.32 MC/CUMM (3.8-5.5); Red Cell Distribution Width 20.4 % (9.3-17.3); White Blood Count 10.2 T/CUMM (4-12)
[2020-12-29 07:55] LABS: Calcium 9.7 MG/DL (8.5-10.1); Osmolality,Calculated 272.2 MOS/KG (273-304); Potassium 3.5 MMOL/L (3.5-5.1)
[2020-12-29 08:16] LABS: Band Neutrophils 1 % (0-10); Lymphocytes 8 % (20-55); Metamyelocytes 2 %; Segmented Neutrophils 73 % (50-85); Total Cells Counted 100
[2020-12-29 08:17] LABS: Burr Cells 2+
[2020-12-29 08:24] LABS: Acanthocytes Few; Elliptocytes Few; Platelet Estimate Adequate
[2020-12-29] MEDS: metOLazone 5 MG TABLET PO SCH (10:31)
[2020-12-29] MEDS: FUROSEMIDE INJ 200 MG in SODIUM CHLORIDE 0.9% 50 ML IV SCH (10:31)
[2020-12-29] MEDS: CHOLECALCIFEROL 1,000 UNIT TABLET PO SCH (17:24)
[2020-12-29] MEDS: allopurinoL 100 MG TABLET PO SCH (17:24)
[2020-12-29] MEDS: MAGNESIUM OXIDE 400 MG TABLET PO SCH ×3 (17:24→21:55)
[2020-12-29] MEDS: FERROUS GLUCONATE 324 MG TABLET PO SCH (17:24)
[2020-12-29] MEDS: PANTOPRAZOLE 40 MG TABLET PO SCH (17:25)
[2020-12-29] MEDS: POTASSIUM CHLORIDE 20 MEQ TABLET PO SCH (17:25)
[2020-12-29] MEDS: ASPIRIN EC 81 MG TABLET PO SCH (17:25)
[2020-12-29] MEDS: MULTIVITAMIN (CENTRUM) TABLET PO SCH (17:25)
[2020-12-29] MEDS: FOLIC ACID 1 MG TABLET PO SCH (17:25)
[2020-12-29] MEDS: CLOPIDOGREL 75 MG TABLET PO SCH (17:25)
[2020-12-29] MEDS: MULTIVITAMIN (BEROCCA) TABLET PO SCH (17:25)
[2020-12-29] MEDS: traZODone 50 MG TABLET PO SCH (21:55)
[2020-12-29] MEDS: SIMVASTATIN 40 MG TABLET PO SCH (21:55)
[2020-12-30 06:21] LABS: Basophils % 0.3 % (0.0-0.8); Eosinophils # 0.1 10*3/uL (0.0-0.87); Eosinophils % 0.5 % (0.00-10.9); Hematocrit 25.6 VOL% (42.0-52.0); Hemoglobin 8.2 GM/DL (14.0-18.0); Immature Granulocytes % 0.9 %; Immature Granulocytes Absolute 0.13 #; Lymphocytes # 0.6 10*3/uL (1.4-4.0); Lymphocytes % 3.8 % (21.2-54.2); Mean Corpuscular Volume 83.7 FL (87-102); Monocytes % 7.8 % (1.7-12.7); Neutrophils % 86.7 % (38.7-73.9); Platelet Count 173 T/CUMM (130-400); Red Blood Count 3.06 MC/CUMM (3.8-5.5); Red Cell Distribution Width 20.3 % (9.3-17.3)
[2020-12-30 06:40] LABS: Eosinophils 2 % (0-10); Lymphocytes 4 % (20-55); Platelet Estimate Normal; Segmented Neutrophils 87 % (50-85); Total Cells Counted 100
[2020-12-30 06:41] LABS: Hypochromasia Slight; Microcytosis Slight; Osmolality,Calculated 266.5 MOS/KG (273-304); Potassium 3.8 MMOL/L (3.5-5.1)
[2020-12-30] MEDS: CHOLECALCIFEROL 1,000 UNIT TABLET PO SCH (14:28)
[2020-12-30] MEDS: MULTIVITAMIN (CENTRUM) TABLET PO SCH (14:28)
[2020-12-30] MEDS: MAGNESIUM OXIDE 400 MG TABLET PO SCH ×3 (14:28→21:12)
[2020-12-30] MEDS: ASPIRIN EC 81 MG TABLET PO SCH (14:29)
[2020-12-30] MEDS: MULTIVITAMIN (BEROCCA) TABLET PO SCH (14:29)
[2020-12-30] MEDS: FOLIC ACID 1 MG TABLET PO SCH (14:29)
[2020-12-30] MEDS: PANTOPRAZOLE 40 MG TABLET PO SCH (14:29)
[2020-12-30] MEDS: POTASSIUM CHLORIDE 20 MEQ TABLET PO SCH (14:29)
[2020-12-30] MEDS: allopurinoL 100 MG TABLET PO SCH (14:30)
[2020-12-30] MEDS: CLOPIDOGREL 75 MG TABLET PO SCH (14:30)
[2020-12-30] MEDS: FERROUS GLUCONATE 324 MG TABLET PO SCH (14:30)
[2020-12-30] MEDS: SIMVASTATIN 40 MG TABLET PO SCH (21:12)
[2020-12-30] MEDS: traZODone 50 MG TABLET PO SCH (21:12)
[2020-12-31] MEDS ORDERED: LIDOCAINE 1%/EPI INJ 20 ML VIAL ONE (06:14)
[2020-12-31] MEDS ORDERED: HEPARIN 5,000 UNIT/1 ML VIAL ONE (06:14)
[2020-12-31] MEDS ORDERED: BUPIVACAINE MPF 0.25% 30 ML VIAL ONE (06:14)
[2020-12-31 06:42] LABS: Basophils % 0.2 % (0.0-0.8); Eosinophils # 0.1 10*3/uL (0.0-0.87); Eosinophils % 0.9 % (0.00-10.9); Immature Granulocytes % 0.8 %; Immature Granulocytes Absolute 0.07 #; Lymphocytes # 0.7 10*3/uL (1.4-4.0); Lymphocytes % 7.3 % (21.2-54.2); Mean Corpuscular Volume 82.5 FL (87-102); Mean Platelet Volume 11.6 FL (9.6-12.0); Monocytes % 12.7 % (1.7-12.7); Neutrophils % 78.1 % (38.7-73.9); Platelet Count 167 T/CUMM (130-400); Red Blood Count 3.03 MC/CUMM (3.8-5.5); Red Cell Distribution Width 20.5 % (9.3-17.3); White Blood Count 9.2 T/CUMM (4-12)
[2020-12-31 06:53] LABS: Calcium 9.2 MG/DL (8.5-10.1); Osmolality,Calculated 267.4 MOS/KG (273-304); Potassium 3.9 MMOL/L (3.5-5.1)
[2020-12-31] MEDS ORDERED: ONDANSETRON 4 MG/2 ML VIAL ONE (08:19)
[2020-12-31] MEDS ORDERED: propofoL 200 MG/20 ML VIAL IV ONE (08:19)
[2020-12-31] MEDS ORDERED: LIDOCAINE 2% 5 ML VIAL ONE (08:19)
[2020-12-31] MEDS ORDERED: fentaNYL 100 MCG/2 ML VIAL ONE (08:22)
[2020-12-31] MEDS: allopurinoL 100 MG TABLET PO SCH (10:24)
[2020-12-31] MEDS: MULTIVITAMIN (CENTRUM) TABLET PO SCH (10:24)
[2020-12-31] MEDS: FOLIC ACID 1 MG TABLET PO SCH (10:24)
[2020-12-31] MEDS: MAGNESIUM OXIDE 400 MG TABLET PO SCH ×3 (10:24→20:43)
[2020-12-31] MEDS: MULTIVITAMIN (BEROCCA) TABLET PO SCH (10:24)
[2020-12-31] MEDS: CHOLECALCIFEROL 1,000 UNIT TABLET PO SCH (10:24)
[2020-12-31] MEDS: FERROUS GLUCONATE 324 MG TABLET PO SCH (10:24)
[2020-12-31] MEDS: PANTOPRAZOLE 40 MG TABLET PO SCH (10:24)
[2020-12-31] MEDS: CLOPIDOGREL 75 MG TABLET PO SCH (10:25)
[2020-12-31] MEDS: ASPIRIN EC 81 MG TABLET PO SCH (10:25)
[2020-12-31] MEDS: POTASSIUM CHLORIDE 20 MEQ TABLET PO SCH (10:25)
[2020-12-31] MEDS: traZODone 50 MG TABLET PO SCH (20:43)
[2020-12-31] MEDS: SIMVASTATIN 40 MG TABLET PO SCH (20:43)
[2021-01-01 06:00] LABS: Basophils % 0.3 % (0.0-0.8); Eosinophils # 0.1 10*3/uL (0.0-0.87); Eosinophils % 1.2 % (0.00-10.9); Hematocrit 25.2 VOL% (42.0-52.0); Hemoglobin 7.9 GM/DL (14.0-18.0); Immature Granulocytes Absolute 0.07 #; Lymphocytes # 0.6 10*3/uL (1.4-4.0); Mean Corpuscular HGB Conc 31.3 GM/DL (32-36); Mean Corpuscular Volume 83.7 FL (87-102); Mean Platelet Volume 10.6 FL (9.6-12.0); Monocytes % 12.2 % (1.7-12.7); NRBC # 0.02 10*3/uL; Neutrophils % 77.3 % (38.7-73.9); Platelet Count 174 T/CUMM (130-400); Red Blood Count 3.01 MC/CUMM (3.8-5.5); Red Cell Distribution Width 20.4 % (9.3-17.3); White Blood Count 7.2 T/CUMM (4-12)
[2021-01-01 06:19] LABS: Calcium 9.1 MG/DL (8.5-10.1); Osmolality,Calculated 262.9 MOS/KG (273-304); Potassium 4.4 MMOL/L (3.5-5.1)
[2021-01-01] MEDS: MULTIVITAMIN (CENTRUM) TABLET PO SCH (11:46)
[2021-01-01] MEDS: MULTIVITAMIN (BEROCCA) TABLET PO SCH (11:46)
[2021-01-01] MEDS: ASPIRIN EC 81 MG TABLET PO SCH (11:46)
[2021-01-01] MEDS: FOLIC ACID 1 MG TABLET PO SCH (11:47)
[2021-01-01] MEDS: POTASSIUM CHLORIDE 20 MEQ TABLET PO SCH (11:47)
[2021-01-01] MEDS: FERROUS GLUCONATE 324 MG TABLET PO SCH (11:47)
[2021-01-01] MEDS: MAGNESIUM OXIDE 400 MG TABLET PO SCH ×3 (11:48→21:51)
[2021-01-01] MEDS: PANTOPRAZOLE 40 MG TABLET PO SCH (11:49)
[2021-01-01] MEDS: CLOPIDOGREL 75 MG TABLET PO SCH (11:49)
[2021-01-01] MEDS: allopurinoL 100 MG TABLET PO SCH (11:50)
[2021-01-01] MEDS: CHOLECALCIFEROL 1,000 UNIT TABLET PO SCH (11:50)
[2021-01-01] MEDS: traZODone 50 MG TABLET PO SCH (21:51)
[2021-01-01] MEDS: SIMVASTATIN 40 MG TABLET PO SCH (21:51)
[2021-01-02 05:32] LABS: Basophils % 0.3 % (0.0-0.8); Eosinophils # 0.1 10*3/uL (0.0-0.87); Hematocrit 24.8 VOL% (42.0-52.0); Hemoglobin 7.7 GM/DL (14.0-18.0); Immature Granulocytes % 0.7 %; Immature Granulocytes Absolute 0.05 #; Lymphocytes # 0.6 10*3/uL (1.4-4.0); Mean Corpuscular Volume 84.1 FL (87-102); Mean Platelet Volume 11.1 FL (9.6-12.0); Monocytes % 12.9 % (1.7-12.7); NRBC # 0.02 10*3/uL; Neutrophils % 77.1 % (38.7-73.9); Platelet Count 172 T/CUMM (130-400); Red Blood Count 2.95 MC/CUMM (3.8-5.5); Red Cell Distribution Width 20.8 % (9.3-17.3); White Blood Count 6.9 T/CUMM (4-12)
[2021-01-02 05:48] LABS: Calcium 9.4 MG/DL (8.5-10.1); Osmolality,Calculated 261.8 MOS/KG (273-304); Potassium 4.2 MMOL/L (3.5-5.1)
[2021-01-02 06:28] LABS: Albumin 3.4 G/DL (3.4-5.0); Bilirubin,Direct 1.74 MG/DL (0.0-0.20); Bilirubin,Indirect 0.6 MG/DL (0.0-1.0); Bilirubin,Total 2.3 MG/DL (0.20-1.00); Total Protein 7.7 G/DL (6.4-8.2)
[2021-01-02] MEDS: MAGNESIUM OXIDE 400 MG TABLET PO SCH ×3 (08:15→21:45)
[2021-01-02] MEDS: CHOLECALCIFEROL 1,000 UNIT TABLET PO SCH (08:15)
[2021-01-02] MEDS: MULTIVITAMIN (CENTRUM) TABLET PO SCH (08:15)
[2021-01-02] MEDS: FOLIC ACID 1 MG TABLET PO SCH (08:15)
[2021-01-02] MEDS: CLOPIDOGREL 75 MG TABLET PO SCH (08:15)
[2021-01-02] MEDS: POTASSIUM CHLORIDE 20 MEQ TABLET PO SCH (08:15)
[2021-01-02] MEDS: ASPIRIN EC 81 MG TABLET PO SCH (08:15)
[2021-01-02] MEDS: allopurinoL 100 MG TABLET PO SCH (08:15)
[2021-01-02] MEDS: PANTOPRAZOLE 40 MG TABLET PO SCH (08:16)
[2021-01-02] MEDS: MULTIVITAMIN (BEROCCA) TABLET PO SCH (08:16)
[2021-01-02] MEDS: FERROUS GLUCONATE 324 MG TABLET PO SCH (08:20)
[2021-01-02 17:14] LABS: % Iron Saturation 9.8 % (18-50); Ferritin 190.3 ng/mL (26-388)
[2021-01-02 17:28] LABS: Folate > 24.00 NG/ML (5.38-24.0); Vitamin B12 1057 PG/ML (211-911)
[2021-01-02] MEDS: METOPROLOL TARTRATE 25 MG TABLET PO SCH (21:45)
[2021-01-02] MEDS: SIMVASTATIN 40 MG TABLET PO SCH (21:45)
[2021-01-02] MEDS: traZODone 50 MG TABLET PO SCH (21:45)
[2021-01-03 08:17] LABS: Basophils % 0.4 % (0.0-0.8); Eosinophils % 0.6 % (0.00-10.9); Hematocrit 25.9 VOL% (42.0-52.0); Hemoglobin 8.1 GM/DL (14.0-18.0); Immature Granulocytes % 0.7 %; Immature Granulocytes Absolute 0.05 #; Lymphocytes # 0.6 10*3/uL (1.4-4.0); Lymphocytes % 8.6 % (21.2-54.2); Mean Corpuscular HGB Conc 31.3 GM/DL (32-36); Mean Corpuscular Volume 84.4 FL (87-102); Mean Platelet Volume 11.1 FL (9.6-12.0); Monocytes % 12.5 % (1.7-12.7); NRBC # 0.02 10*3/uL; Neutrophils % 77.2 % (38.7-73.9); Platelet Count 156 T/CUMM (130-400); Red Blood Count 3.07 MC/CUMM (3.8-5.5); Red Cell Distribution Width 21.2 % (9.3-17.3); White Blood Count 7.1 T/CUMM (4-12)
[2021-01-03] MEDS: CHOLECALCIFEROL 1,000 UNIT TABLET PO SCH (08:21)
[2021-01-03] MEDS: allopurinoL 100 MG TABLET PO SCH (08:22)
[2021-01-03] MEDS: MAGNESIUM OXIDE 400 MG TABLET PO SCH ×3 (08:22→21:48)
[2021-01-03] MEDS: PANTOPRAZOLE 40 MG TABLET PO SCH (08:22)
[2021-01-03] MEDS: FOLIC ACID 1 MG TABLET PO SCH (08:22)
[2021-01-03] MEDS: ASPIRIN EC 81 MG TABLET PO SCH (08:22)
[2021-01-03] MEDS: MULTIVITAMIN (BEROCCA) TABLET PO SCH (08:22)
[2021-01-03] MEDS: MULTIVITAMIN (CENTRUM) TABLET PO SCH (08:22)
[2021-01-03] MEDS: METOPROLOL TARTRATE 25 MG TABLET PO SCH ×2 (08:22→21:49)
[2021-01-03] MEDS: FERROUS GLUCONATE 324 MG TABLET PO SCH (08:22)
[2021-01-03] MEDS: POTASSIUM CHLORIDE 20 MEQ TABLET PO SCH (08:22)
[2021-01-03] MEDS: CLOPIDOGREL 75 MG TABLET PO SCH (08:22)
[2021-01-03 08:33] LABS: Calcium 9.8 MG/DL (8.5-10.1); Osmolality,Calculated 262.9 MOS/KG (273-304); Potassium 4.8 MMOL/L (3.5-5.1)
[2021-01-03] MEDS: traZODone 50 MG TABLET PO SCH (21:48)
[2021-01-03] MEDS: SIMVASTATIN 40 MG TABLET PO SCH (21:49)
[2021-01-03] MEDS: APIXABAN 2.5 MG TABLET PO SCH (21:49)
[2021-01-04 05:40] LABS: Basophils % 0.3 % (0.0-0.8); Eosinophils # 0.1 10*3/uL (0.0-0.87); Eosinophils % 0.7 % (0.00-10.9); Hematocrit 24.8 VOL% (42.0-52.0); Hemoglobin 7.8 GM/DL (14.0-18.0); Immature Granulocytes % 0.7 %; Immature Granulocytes Absolute 0.06 #; Lymphocytes # 0.5 10*3/uL (1.4-4.0); Mean Corpuscular HGB Conc 31.5 GM/DL (32-36); Mean Corpuscular Volume 84.4 FL (87-102); Mean Platelet Volume 12.1 FL (9.6-12.0); Monocytes % 10.3 % (1.7-12.7); Platelet Count 163 T/CUMM (130-400); Red Blood Count 2.94 MC/CUMM (3.8-5.5); Red Cell Distribution Width 21.2 % (9.3-17.3)
[2021-01-04 05:58] LABS: Calcium 9.4 MG/DL (8.5-10.1); Osmolality,Calculated 261.8 MOS/KG (273-304); Potassium 4.7 MMOL/L (3.5-5.1)
[2021-01-04] MEDS: METOPROLOL TARTRATE 25 MG TABLET PO SCH ×2 (09:13→21:34)
[2021-01-04] MEDS: MAGNESIUM OXIDE 400 MG TABLET PO SCH ×3 (09:13→21:34)
[2021-01-04] MEDS: MULTIVITAMIN (CENTRUM) TABLET PO SCH (09:13)
[2021-01-04] MEDS: PANTOPRAZOLE 40 MG TABLET PO SCH (09:13)
[2021-01-04] MEDS: MULTIVITAMIN (BEROCCA) TABLET PO SCH (09:13)
[2021-01-04] MEDS: allopurinoL 100 MG TABLET PO SCH (09:13)
[2021-01-04] MEDS: CHOLECALCIFEROL 1,000 UNIT TABLET PO SCH (09:13)
[2021-01-04] MEDS: FERROUS GLUCONATE 324 MG TABLET PO SCH (09:14)
[2021-01-04] MEDS: FOLIC ACID 1 MG TABLET PO SCH (09:14)
[2021-01-04] MEDS: APIXABAN 2.5 MG TABLET PO SCH ×2 (09:14→21:34)
[2021-01-04] MEDS: CLOPIDOGREL 75 MG TABLET PO SCH (09:14)
[2021-01-04] MEDS: POTASSIUM CHLORIDE 20 MEQ TABLET PO SCH (09:14)
[2021-01-04] MEDS: SIMVASTATIN 40 MG TABLET PO SCH (21:34)
[2021-01-04] MEDS: traZODone 50 MG TABLET PO SCH (21:34)
[2021-01-05 05:47] LABS: Basophils % 0.5 % (0.0-0.8); Eosinophils # 0.1 10*3/uL (0.0-0.87); Eosinophils % 1.1 % (0.00-10.9); Hematocrit 24.9 VOL% (42.0-52.0); Hemoglobin 7.9 GM/DL (14.0-18.0); Immature Granulocytes Absolute 0.06 #; Lymphocytes # 0.6 10*3/uL (1.4-4.0); Lymphocytes % 8.9 % (21.2-54.2); Mean Corpuscular HGB Conc 31.7 GM/DL (32-36); Mean Platelet Volume 11.5 FL (9.6-12.0); Monocytes % 13.2 % (1.7-12.7); NRBC # 0.02 10*3/uL; Neutrophils % 75.3 % (38.7-73.9); Platelet Count 153 T/CUMM (130-400); Red Blood Count 2.93 MC/CUMM (3.8-5.5); Red Cell Distribution Width 21.6 % (9.3-17.3); White Blood Count 6.2 T/CUMM (4-12)
[2021-01-05 06:16] LABS: Calcium 9.6 MG/DL (8.5-10.1); Osmolality,Calculated 262.1 MOS/KG (273-304); Potassium 4.8 MMOL/L (3.5-5.1)
[2021-01-05] MEDS: MULTIVITAMIN (CENTRUM) TABLET PO SCH (10:12)
[2021-01-05] MEDS: APIXABAN 2.5 MG TABLET PO SCH (10:12)
[2021-01-05] MEDS: MULTIVITAMIN (BEROCCA) TABLET PO SCH (10:12)
[2021-01-05] MEDS: METOPROLOL TARTRATE 25 MG TABLET PO SCH (10:13)
[2021-01-05] MEDS: CHOLECALCIFEROL 1,000 UNIT TABLET PO SCH (10:13)
[2021-01-05] MEDS: CLOPIDOGREL 75 MG TABLET PO SCH (10:13)
[2021-01-05] MEDS: PANTOPRAZOLE 40 MG TABLET PO SCH (10:13)
[2021-01-05] MEDS: FOLIC ACID 1 MG TABLET PO SCH (10:13)
[2021-01-05] MEDS: allopurinoL 100 MG TABLET PO SCH (10:13)
[2021-01-05] MEDS: FERROUS GLUCONATE 324 MG TABLET PO SCH (10:13)
[2021-01-05] MEDS: MAGNESIUM OXIDE 400 MG TABLET PO SCH ×2 (10:13→15:06)
[2021-01-05] MEDS: POTASSIUM CHLORIDE 20 MEQ TABLET PO SCH (10:13)
[2021-01-05 16:35] VITALS: BP 104/57
== END 2021-01-05 19:20 | DRG 291 ==
LOC: EDBD → EDUNIT# → N.ED 13:54 → N.EDINP 16:54 → SUATTDRO 16:54 → N.TELES 18:07
PROVIDERS: ADMIT Internal Medicine; ATTEND Internal Medicine